=== PATIENT | female | born 1950 | race Caucasian/White ===

== ENCOUNTER 2016-06-16 17:41 | Emergency (ER) | payer MEDICARE, OTHER ==
--- NOTE | 2016-06-16 18:14 | ERPHSYRPT ---
- History of Present Illness Source: patient, family Exam Limitations: no limitations Patient Subjective Stated Complaint: has had some confusion past couple days, has trouble remembering things Triage Nursing Assessment: patient had episode similar to this last summer in august and her potassium, magnesium were all abnormal, shes having some confusion , trouble remembering things. Timing/Duration: today, hour(s) (2) Severity: mild Character of Deficits: other (Her states that she has had a few apisodes of altered memory over past few days. Then at 1600 today when he walked into room, she asked him who he was (did not recognize him). This lasted about 4 minutes, then she was clear again. No seizure or tonic/clonic activity.) Deficits: no difficulties Baseline/Normal Cognition: alert oriented x 3 Current Cognition: alert oriented x 3 Baseline Gait: walks w/o assistance Associated Symptoms: confusion, No slurred speech, No trouble walking Hx Tetanus, Diphtheria Vaccination/Date Given: Yes Hx Influenza Vaccination/Date Given: No Hx Pneumococcal Vaccination/Date Given: No Immunizations Up to Date: Yes <PAIGE BROWN - Last Filed: 06/16/16 18:47> <CINDY COLLINS - Last Filed: 06/16/16 20:14> - History of Present Illness Time Seen by Provider: 06/16/16 18:00 Physician History: No falls reported by her here with her. No change in meds, no missed meds, no extra meds. Pt. has no C/O pain or dysuria. (PAIGE BROWN) Allergies/Adverse Reactions: albuterol Allergy (Intermediate, Verified 11/23/15 11:56) Shortness of Breath Sulfa (Sulfonamide Antibiotics) Allergy (Intermediate, Verified 11/23/15 11:56) Home Medications: Glimepiride 1 mg PO DAILY 09/03/15 [History] Levothyroxine Sodium 25 Mcg [Synthroid 25 Mcg] 25 mcg PO DAILY 09/03/15 [ History] Lisinopril 20 mg PO DAILY 09/03/15 [History] Lovastatin 40 mg PO HS 09/03/15 [History] Metformin HCl 500 mg [Glucophage 500 MG] 500 mg PO BID 09/03/15 [History] Oxybutynin Chloride [Oxybutynin Chloride ER] 5 mg PO DAILY 09/03/15 [History] - Review of Systems Constitutional: No Symptoms Eyes: No Symptoms Ears, Nose, & Throat: No Symptoms Respiratory: No Symptoms Cardiac: No Symptoms Abdominal/Gastrointestinal: No Symptoms Skin: No Symptoms Neurological: Other (Altered mental status) Psychological: No Symptoms Endocrine: No Symptoms Hematologic/Lymphatic: No Symptoms Immunological/Allergic: No Symptoms <BROWNPAIGE SURENDRA - Last Filed: 06/16/16 18:47> - Past Medical History Pertinent Past Medical History: Yes Cardiac History: High Cholesterol, Hypertension Endocrine Medical History: Diabetes Type II Other Medical History: recent memory issues - Past Surgical History Past Surgical History: Yes Gastrointestinal: Cholecystectomy Female Surgical History: Hysterectomy - Social History Smoking Status: Never smoker Exposure to second hand smoke: No Drug Use: none Patient Lives Alone: No <STEPHANIEPAIGE SURENDRA - Last Filed: 06/16/16 18:47> - [place] Coma Scale Best Eye Response ([place]): (4) open spontaneously Best Verbal Response ([place]): (5) oriented Best Motor Response ([place]): (6) obeys commands [place] Total: 15 - Physical Exam General Appearance: no apparent distress Eye Exam: bilateral eye: PERRL Ears, Nose, Throat Exam: normal ENT inspection, pharynx normal Neck Exam: normal inspection, non-tender, supple, full range of motion Respiratory: normal breath sounds, lungs clear Cardiovascular: regular rate/rhythm, normal heart sounds, normal peripheral pulses Gastrointestinal: soft, normal bowel sounds Back Exam: normal inspection, normal range of motion Extremity Exam: normal inspection, normal range of motion, pelvis stable Mental Status: alert, 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: normal hearing, normal speech Coordination/Gait: normal gait Motor/Sensory: no motor deficit, no sensory deficit, no pronator drift Skin Exam: normal color, warm, dry SpO2 Interpretation: normal SpO2: 98 Oxygen Delivery: Room Air <PAIGE BROWN - Last Filed: 06/16/16 18:47> <CINDY COLLINS - Last Filed: 06/16/16 20:14> - Nursing Vital Signs Nursing Vital Signs: Initial Vital Signs Temperature 98.3 F Temperature Source Oral Pulse Rate 66 Respiratory Rate 20 Blood Pressure [] 142/72 Pain Intensity 0 - Course Nursing assessment & vital signs reviewed: Yes EKG Interpreted by Me: RATE (62), Sinus Rhythm, NORMAL AXIS, Other (Loss of Anterior R forces. No acute ischemia and no change since ECG of 6.16.16.) <PAIGE BROWN AGOSTO - Last Filed: 06/16/16 18:47> - Radiology Exams Chest X-ray Interpretation: Interpreted by me, No Pneumonia - CT Exams Head CT Interpretation: Discussed w/radiologist (STABLE NEGATIVE CT HEAD COMPARED TO 09/03/15.) <CINDY COLLINS - Last Filed: 06/16/16 20:14> Ordered Tests: Active Orders 24 hr Category Date Time Status Food Beverage Attendant STAT Care 06/16/16 18:22 Active Clean Catch Urine Specimen STAT Care 06/16/16 18:20 Active EKG-ER Only STAT Care 06/16/16 18:20 Active IV Insertion STAT Care 06/16/16 18:34 Active IV Insertion-2nd Peripheral STAT Care 06/16/16 18:22 Inactive Oxygen-ED Only NASAL CANNULA 2 lpm Care 06/16/16 18:22 Active CHEST 1 VIEW (PORTABLE) Stat Exams 06/16/16 18:20 Taken HEAD WITHOUT CONTRAST [CT] Stat Exams 06/16/16 18:09 Taken ACETAMINOPHEN Stat Lab 06/16/16 18:26 Completed CBC W DIFF Stat Lab 06/16/16 18:26 Completed CMP Stat Lab 06/16/16 18:26 Completed CULTURE,URINE Stat Lab 06/16/16 19:40 Received Ethyl Alcohol,Urine Stat Lab 06/16/16 19:37 Completed PROTIME WITH INR Stat Lab 06/16/16 18:26 Completed SALICYLATE Stat Lab 06/16/16 18:26 Completed TROPONIN Stat Lab 06/16/16 18:26 Completed UA W/ MICROSCOPIC Stat Lab 06/16/16 19:40 Completed UA W/RFX UR CULTURE Stat Lab 06/16/16 19:40 Completed Urine Triage Profile Stat Lab 06/16/16 19:40 Completed Lab/Rad Data: Laboratory Result Diagrams 06/16/16 18:26 06/16/16 18:26 Laboratory Results 06/16/16 06/16/16 06/16/16 Range/Units 19:40 19:40 19:37 WBC (4.0-10.5) K/mm3 RBC (4.1-5.4) M/mm3 Hgb (12.0-16.0) gm/dl Hct (35-47) % MCV (78-100) fl MCH (26-32) pg MCHC (32-36) g/dl RDW (11.5-14.0) % Plt Count (150-450) K/mm3 MPV (6-9.5) fl Gran % (36.0-66.0) % Lymphocytes % (24.0-44.0) % Monocytes % (0.0-12.0) % Eosinophils % (0.00-5.0) % Basophils % (0.0-0.4) % Basophils # (0-0.4) INR (0.8-3.0) Sodium (136-145) mEq/L Potassium (3.5-5.1) mEq/L Chloride (98-107) mEq/L Carbon Dioxide (21-32) mEq/L Anion Gap (5-15) MEQ/L BUN (9-20) mg/dL Creatinine (0.55-1.30) mg/dl Estimated GFR ML/MIN Glucose (70-110) MG/DL Calcium (8.5-10.1) mg/dL Total Bilirubin (0.2-1.0) mg/dL AST (15-37) U/L ALT (12-78) U/L Alkaline Phosphatase (46-116) U/L Troponin I (0.000-0.056) ng/ml Serum Total Protein (6.4-8.2) gm/dL Albumin (3.4-5.0) g/dL Ur Collection Type CLEAN CATCH Urine Color YELLOW (YELLOW) Urine Appearance CLEAR (CLEAR) Ur Specific [place] 1.010 (1.005-1.025) Urine Protein NEGATIVE (Negative) Urine Glucose (UA) NEGATIVE (NEGATIVE) mg/dL Urine Ketones NEGATIVE (NEGATIVE) Urine Nitrite POSITIVE (NEGATIVE) Urine Bilirubin NEGATIVE (NEGATIVE) Urine Urobilinogen 0.2 (0-1) mg/dL Urine WBC (Auto) MODERATE (NEGATIVE) Urine RBC (Auto) TRACE-INTACT (0-5) Vincenzo/ul Urine Microscopic RBC 2-5 (0-2) /HPF Urine Microscopic WBC 25-50 (0-5) /HPF Ur Epithelial Cells FEW (FEW) /HPF Urine Bacteria MANY (NEGATIVE) /HPF Salicylates (2.8-20.0) mg/dl Urine Opiates Level NEG. (NEGATIVE) Ur Methadone NEG. (NEGATIVE) Acetaminophen (10-30) ug/ml Urine Barbiturates NEG. (NEGATIVE) Ur Phencyclidine (PCP) NEG. (NEGATIVE) Urine Amphetamine NEG. (NEGATIVE) U Benzodiazepine Level NEG. (NEGATIVE) Urine Cocaine NEG. (NEGATIVE) Urine Marijuana (THC) NEG. (NEGATIVE) Urine pH 5.5 5.5 (3-8.5) Urine Ethyl Alcohol 2 (0.00-20) mg/dl Specimen Received 06/16/16193906/16/16 06/16/16 06/16/16 Range/Units 18:26 18:26 18:26 WBC 7.3 (4.0-10.5) K/mm3 RBC 3.62 L (4.1-5.4) M/mm3 Hgb 11.5 L (12.0-16.0) gm/dl Hct 34.1 L (35-47) % MCV 94.2 (78-100) fl MCH 31.7 (26-32) pg MCHC 33.7 (32-36) g/dl RDW 12.5 (11.5-14.0) % Plt Count 214 (150-450) K/mm3 MPV 9.8 H (6-9.5) fl Gran % 51.2 (36.0-66.0) % Lymphocytes % 37.0 (24.0-44.0) % Monocytes % 7.0 (0.0-12.0) % Eosinophils % 4.4 (0.00-5.0) % Basophils % 0.4 (0.0-0.4) % Basophils # 0.03 (0-0.4) INR 0.93 (0.8-3.0) Sodium 139 (136-145) mEq/L Potassium 3.7 (3.5-5.1) mEq/L Chloride 101 (98-107) mEq/L Carbon Dioxide 26.3 (21-32) mEq/L Anion Gap 15.2 H (5-15) MEQ/L BUN 16 (9-20) mg/dL Creatinine 1.09 (0.55-1.30) mg/dl Estimated GFR 53 ML/MIN Glucose 152 H (70-110) MG/DL Calcium 9.0 (8.5-10.1) mg/dL Total Bilirubin 0.5 (0.2-1.0) mg/dL AST 25 (15-37) U/L ALT 18 (12-78) U/L Alkaline Phosphatase 45 L (46-116) U/L Troponin I < 0.017 (0.000-0.056) ng/ml Serum Total Protein 7.1 (6.4-8.2) gm/dL Albumin 4.2 (3.4-5.0) g/dL Ur Collection Type Urine Color (YELLOW) Urine Appearance (CLEAR) Ur Specific [place] (1.005-1.025) Urine Protein (Negative) Urine Glucose (UA) (NEGATIVE) mg/dL Urine Ketones (NEGATIVE) Urine Nitrite (NEGATIVE) Urine Bilirubin (NEGATIVE) Urine Urobilinogen (0-1) mg/dL Urine WBC (Auto) (NEGATIVE) Urine RBC (Auto) (0-5) Vincenzo/ul Urine Microscopic RBC (0-2) /HPF Urine Microscopic WBC (0-5) /HPF Ur Epithelial Cells (FEW) /HPF Urine Bacteria (NEGATIVE) /HPF Salicylates < 2.8 L (2.8-20.0) mg/dl Urine Opiates Level (NEGATIVE) Ur Methadone (NEGATIVE) Acetaminophen < 2.0 L (10-30) ug/ml Urine Barbiturates (NEGATIVE) Ur Phencyclidine (PCP) (NEGATIVE) Urine Amphetamine (NEGATIVE) U Benzodiazepine Level (NEGATIVE) Urine Cocaine (NEGATIVE) Urine Marijuana (THC) (NEGATIVE) Urine pH (3-8.5) Urine Ethyl Alcohol (0.00-20) mg/dl Specimen Received - Progress Counseled pt/family regarding: lab results, diagnosis, rad results <PAIGE BROWN - Last Filed: 06/16/16 18:47> <CINDY COLLINS - Last Filed: 06/16/16 20:14> - Progress Progress Note: 06/16/16 20:[address] COLLINS 1956: PERRL, EOMI, TM'S NOT INJECTED, PHARYNX PINK, NECK SUPPLE, LUNGS CLEAR, NO CARDIAC RUB, ABDOMINAL B.S. NORMAL, FULL ROM AND SENSATION OF ALL EXTREMITIES, ALERT & COOPERATIVE, CN'S 2-12 NORMAL TESTED, NO BABINSKI PRESENT, NO TREMORS, ORIENTED X3. (CINDY COLLINS) <PAIGE BROWN - Last Filed: 06/16/16 18:47> - Departure Time of Disposition: 20:14 Departure Disposition: Home Critical Care Time: No <CINDY COLLINS - Last Filed: 06/16/16 20:14> - Departure Clinical Impression: CONFUSION Condition: Fair Referrals: SUMIT ANTONY MD [Primary Care Provider] - Instructions: Alzheimer's Disease Additional Instructions: FOLLOW UP WITH PRIVATE DOCTOR TOMORROW.
[2016-06-16 18:31] LABS: BASOPHIL % 0.4 % (0.0-0.4); Eosinophil % 4.4 % (0.00-5.0); Granulocytes % 51.2 % (36.0-66.0); Mean Cell Volume 94.2 fl (78-100); Mean Platelet Volume 9.8 fl (6-9.5); Platelet Count 214 K/mm3 (150-450); Red Blood Count 3.62 M/mm3 (4.1-5.4); Red Cell Distribution Width 12.5 % (11.5-14.0); White Blood Count 7.3 K/mm3 (4.0-10.5)
[2016-06-16 18:34] LABS: Mean Corpuscular Hemoglobin 31.7 pg (26-32)
[2016-06-16 18:37] LABS: INR 0.93 (0.8-3.0); PROTIME 10.4 SECONDS (9.95-12.35)
[2016-06-16 18:49] LABS: ALBUMIN 4.2 g/dL (3.4-5.0); ALKALINE PHOSPHATASE 45 U/L (46-116); ANION GAP 15.2 MEQ/L (5-15); BILIRUBIN,TOTAL 0.5 mg/dL (0.2-1.0); BLOOD UREA NITROGEN 16 mg/dL (9-20); CHLORIDE 101 mEq/L (98-107); Carbon Dioxide 26.3 mEq/L (21-32); Glucose 152 MG/DL (70-110); Potassium 3.7 mEq/L (3.5-5.1); SGOT/AST 25 U/L (15-37); SGPT/ALT 18 U/L (12-78); SODIUM 139 mEq/L (136-145); Total Protein 7.1 gm/dL (6.4-8.2)
[2016-06-16 18:50] LABS: ACETAMINOPHEN < 2.0 ug/ml (10-30); TROPONIN < 0.017 ng/ml (0.000-0.056)
[2016-06-16 19:55] LABS: COMPLETE URINE MICROSCOPIC? YES; Collection Type CLEAN CATCH; Ph 5.5 (5-6); WBC 25-50 /HPF (0-5)
[2016-06-16 19:56] LABS: ADD URINE CULTURE? YES (NO); Bacteria MANY /HPF (NEGATIVE); Epithelial Cells FEW /HPF (FEW)
[2016-06-16] MEDS ORDERED: ROCEPHIN 1 Gm-D5w 50 ml Bag** 50 ML IV ONE ×2 (20:18→20:19)
[2016-06-16 21:09] VITALS: BP 129/70; PULSE 78; O2SAT 100
--- NOTE | 2016-06-17 08:37 | XRAY ---
Indication: Altered mental status. Multiple contiguous axial images obtained through the head without contrast. Comparison: September 03, 2015. Stable age-appropriate global atrophy. No acute intracranial hemorrhage, abnormal extra-axial fluid collection, or mass effect. Fourth ventricle is midline without hydrocephalus. May-white matter differentiation preserved. Bony calvarium intact. Visualized paranasal sinuses and mastoid air cells are pneumatized and clear. Impression: Stable negative CT head without contrast exam. CT DI 70.21
--- NOTE | 2016-06-17 08:44 | XRAY ---
Indication: Altered mental status. Comparison: September 03, 2015. Portable chest again demonstrates normal heart and lungs. Bony thorax intact with stable mild osteopenia, degenerative changes, and scoliosis.
== END 2016-06-16 21:09 | disposition home or self-care (01) ==
LOC: ED 17:41
DX: R41.0 Disorientation, unspecified (principal); E11.9 Type 2 diabetes mellitus without complications; E78.00 Pure hypercholesterolemia, unspecified; I10 Essential (primary) hypertension; Z79.84 Long term (current) use of oral hypoglycemic drugs; Z79.899 Other long term (current) drug therapy
CPT/HCPCS: 93041; 96365; 99284; 36000; 93005; 81000 ×2; 85610; 36415; 80307 ×2; 80320; 83986; 85025; 80053; 84484; 87086; 71010; 70450; G0481; 87077; 87186; J0696

== ENCOUNTER 2016-06-24 14:00 | Emergency (ER) | payer MEDICARE, OTHER ==
[2016-06-24 14:15] VITALS: O2SAT 94
[2016-06-24] MEDS ORDERED: DECADRON 10MG INJ. IM ONE (14:33)
[2016-06-24] MEDS ORDERED: DECADRON 10MG INJ. ONE (14:39)
--- NOTE | 2016-06-24 14:40 | ERPHSYRPT ---
- History of Present Illness Time Seen by Provider: 06/24/16 14:18 Source: patient, family () Patient Subjective Stated Complaint: cough for 2 days, productive cough, white in color, no fever Triage Nursing Assessment: pt walked in ,resp easy,chest clear, no edema, alert Physician History: CC: cough Hx: [address] Antony with hx of bronchitis frequently. She has DM and watches sugars which run around 100. She had a cough since this AM. Feels congestion. Recently took macrobid for UTI. Timing/Duration: today Severity of Dyspnea-Max: mild Severity of Dyspnea-Current: mild Allergies/Adverse Reactions: albuterol Allergy (Intermediate, Verified 06/24/16 14:15) Shortness of Breath Sulfa (Sulfonamide Antibiotics) Allergy (Intermediate, Verified 06/24/16 14:15) Home Medications: Glimepiride 1 mg PO DAILY 09/03/15 [History] Levothyroxine Sodium 25 Mcg [Synthroid 25 Mcg] 25 mcg PO DAILY 09/03/15 [ History] Lisinopril 20 mg PO DAILY 09/03/15 [History] Lovastatin 40 mg PO HS 09/03/15 [History] Metformin HCl 500 mg [Glucophage 500 MG] 500 mg PO BID 09/03/15 [History] Oxybutynin Chloride [Oxybutynin Chloride ER] 5 mg PO DAILY 09/03/15 [History] Hx Tetanus, Diphtheria Vaccination/Date Given: Yes Hx Influenza Vaccination/Date Given: No Hx Pneumococcal Vaccination/Date Given: No - Review of Systems Constitutional: Malaise, No Fever, No Chills Eyes: No Symptoms Ears, Nose, & Throat: Nose Congestion Respiratory: Cough Abdominal/Gastrointestinal: No Abdominal Pain, No Nausea, No Vomiting Skin: No Rash Neurological: No Headache - Past Medical History Pertinent Past Medical History: Yes Cardiac History: High Cholesterol, Hypertension Endocrine Medical History: Diabetes Type II Other Medical History: recent memory issues - Past Surgical History Past Surgical History: Yes Gastrointestinal: Cholecystectomy Female Surgical History: Hysterectomy - Social History Smoking Status: Never smoker Exposure to second hand smoke: No Drug Use: none Patient Lives Alone: No - Female History Hx Last Menstrual Period: post - Nursing Vital Signs Nursing Vital Signs: Initial Vital Signs Temperature 98.7 F Temperature Source Oral Pulse Rate 67 Respiratory Rate 16 Blood Pressure [Right Arm] 155/85 Pain Intensity 0 - Physical Exam General Appearance: alert Eye Exam: PERRL/EOMI Neck Exam: normal inspection, non-tender, supple Respiratory Exam: rhonchi, wheezing, other (+ cough) Cardiovascular/Chest Exam: regular rate/rhythm Extremity Exam: no pedal edema Neurologic Exam: alert, oriented x 3, cooperative, sensation nml, No motor deficits Skin Exam: warm, dry, No rash SpO2 Interpretation: normal SpO2: 94 Oxygen Delivery: Room Air - Course Nursing assessment & vital signs reviewed: Yes Ordered Tests: Medication Summary Generic Name Dose Route Start Last Admin Trade Name Freq PRN Reason Stop Dose Admin Dexamethasone Sodium Phosphate 10 mg 06/24/16 14:33 Decadron 10mg Inj. IM 06/24/16 14:34 STAT ONE - Progress Progress Note: 06/24/16 14:37 She appears to have new asthmatic bronchitis. Offered alb MDI but she reports allergic. Will give IM dexamethasone and zithromax which she has taken in the past. She has follow up already established with Dr Antony. Counseled pt/family regarding: diagnosis, need for follow-up - Departure Time of Disposition: 14:38 Departure Disposition: Home Clinical Impression: Acute asthmatic bronchitis Condition: Stable Critical Care Time: No Referrals: SUMIT ANTONY MD [Primary Care Provider] - Instructions: Cough -- Adult, Bronchitis Additional Instructions: Rx zithromax. Follow up with Dr Antony. Watch your sugars. Prescriptions: Azithromycin [Zithromax] 0 tab PO UD #6 tablet
[2016-06-24 14:47] VITALS: BP 150/61; PULSE 76
== END 2016-06-24 14:47 | disposition home or self-care (01) ==
LOC: ED 14:00
DX: J45.998 Other asthma (principal); R05 Cough; E11.9 Type 2 diabetes mellitus without complications; Z79.899 Other long term (current) drug therapy
CPT/HCPCS: 96372; 99283; 99284; J1100

== ENCOUNTER 2016-06-25 17:41 | Emergency (ER) | payer MEDICARE, OTHER ==
[2016-06-25 17:58] VITALS: O2SAT 94
[2016-06-25 18:26] LABS: BASOPHIL % 0.1 % (0.0-0.4); Eosinophil % 3.5 % (0.00-5.0); Granulocytes % 83.4 % (36.0-66.0); Lymphocytes % 5.5 % (24.0-44.0); Mean Cell Volume 93.7 fl (78-100); Mean Platelet Volume 9.8 fl (6-9.5); Monocytes % 7.5 % (0.0-12.0); Platelet Count 223 K/mm3 (150-450); Red Blood Count 3.67 M/mm3 (4.1-5.4); Red Cell Distribution Width 12.7 % (11.5-14.0); White Blood Count 16.4 K/mm3 (4.0-10.5)
[2016-06-25 18:30] LABS: Mean Corpuscular Hemoglobin 31.8 pg (26-32)
[2016-06-25 18:38] LABS: ANION GAP 18.4 MEQ/L (5-15); Carbon Dioxide 21.1 mEq/L (21-32)
--- NOTE | 2016-06-25 18:58 | ERPHSYRPT ---
- History of Present Illness Time Seen by Provider: 06/25/16 18:02 Source: patient, family () Patient Subjective Stated Complaint: pt states she is currently being treated for an uti for the past week. pt states she was seen on 06/24/16 in ER for a cough. pt states she began running a fever today. denies any sob. non productive cough. Triage Nursing Assessment: pt pink, warm, dry. lungs sounds clear and equal bilaterally. Physician History: CC: fever Hx: 66 y/o patient with recent bladder infection treated with macrobid. She was here yesterday 3hours after starting cough and headache and malaise without fever. She was given zithromax. Allergic to albuterol. She was doing well today until about 2PM when she developed a fever to 102. She took APAP. Worried the uti or bronchitis might be worse so came to ER. No diff breathing. Mild headache , memory issues some of which predated this illness, and some mylagias. Timing/Duration: today Allergies/Adverse Reactions: albuterol Allergy (Intermediate, Verified 06/25/16 17:58) Shortness of Breath Sulfa (Sulfonamide Antibiotics) Allergy (Intermediate, Verified 06/25/16 17:58) Home Medications: Glimepiride 1 mg PO DAILY 09/03/15 [History] Levothyroxine Sodium 25 Mcg [Synthroid 25 Mcg] 25 mcg PO DAILY 09/03/15 [ History] Lisinopril 20 mg PO DAILY 09/03/15 [History] Lovastatin 40 mg PO HS 09/03/15 [History] Metformin HCl 500 mg [Glucophage 500 MG] 500 mg PO BID 09/03/15 [History] Oxybutynin Chloride [Oxybutynin Chloride ER] 5 mg PO DAILY 09/03/15 [History] Hx Tetanus, Diphtheria Vaccination/Date Given: Yes (unknown) Hx Influenza Vaccination/Date Given: No Hx Pneumococcal Vaccination/Date Given: No Immunizations Up to Date: Yes - Review of Systems Constitutional: Fever, Fatigue, Malaise, Weakness Eyes: No Symptoms Ears, Nose, & Throat: Nose Congestion Respiratory: Cough Abdominal/Gastrointestinal: Nausea, No Vomiting, No Diarrhea Genitourinary Symptoms: No Dysuria Musculoskeletal: No Back Pain, No Neck Pain Skin: No Rash Neurological: Headache All Other Systems: Reviewed and Negative - Past Medical History Pertinent Past Medical History: Yes Cardiac History: High Cholesterol, Hypertension Endocrine Medical History: Diabetes Type II Other Medical History: recent memory issues - Past Surgical History Past Surgical History: Yes Gastrointestinal: Cholecystectomy Female Surgical History: Hysterectomy - Social History Smoking Status: Never smoker Exposure to second hand smoke: No Drug Use: none Patient Lives Alone: No (here with ) - Nursing Vital Signs Nursing Vital Signs: Initial Vital Signs Temperature 100.2 F Temperature Source Oral Pulse Rate 76 Respiratory Rate 16 Blood Pressure [] 122/58 Pain Intensity 0 - Physical Exam General Appearance: alert Eye Exam: PERRL/EOMI Ears, Nose, Throat Exam: normal ENT inspection, moist mucous membranes Neck Exam: normal inspection, non-tender, supple, No meningismus Respiratory Exam: normal breath sounds, lungs clear, No respiratory distress Cardiovascular Exam: regular rate/rhythm, No murmur Gastrointestinal/Abdomen Exam: soft, No tenderness, No distention Back Exam: normal inspection Extremity Exam: normal inspection, normal range of motion Neurologic Exam: alert, oriented x 3, cooperative, sensation nml, No motor deficits Skin Exam: warm, dry, No rash SpO2 Interpretation: normal SpO2: 94 Oxygen Delivery: Room Air - Course Nursing assessment & vital signs reviewed: Yes - Radiology Exams cxr X-ray Interpretation: Reviewed by me (minimal if any infiltrates RLL- no change from prior) Ordered Tests: Active Orders 24 hr Category Date Time Status IV Insertion STAT Care 06/25/16 18:01 Active CHEST 2 VIEWS (PA AND LAT) Stat Exams 06/25/16 18:00 Taken BMP Stat Lab 06/25/16 18:18 Completed CBC W DIFF Stat Lab 06/25/16 18:18 Completed CULTURE,URINE Stat Lab 06/25/16 19:12 Received Lactic Acid Urgent Lab 06/25/16 18:20 Completed UA W/ MICROSCOPIC Stat Lab 06/25/16 18:18 Completed Lab/Rad Data: Laboratory Result Diagrams 06/25/16 18:18 06/25/16 18:18 Laboratory Results 06/25/16 06/25/16 06/25/16 Range/Units 18:20 18:18 18:18 WBC 16.4 H (4.0-10.5) K/mm3 RBC 3.67 L (4.1-5.4) M/mm3 Hgb 11.7 L (12.0-16.0) gm/dl Hct 34.4 L (35-47) % MCV 93.7 (78-100) fl MCH 31.8 (26-32) pg MCHC 34.0 (32-36) g/dl RDW 12.7 (11.5-14.0) % Plt Count 223 (150-450) K/mm3 MPV 9.8 H (6-9.5) fl Gran % 83.4 H (36.0-66.0) % Lymphocytes % 5.5 L (24.0-44.0) % Monocytes % 7.5 (0.0-12.0) % Eosinophils % 3.5 (0.00-5.0) % Basophils % 0.1 (0.0-0.4) % Basophils # 0.02 (0-0.4) Sodium 138 (136-145) mEq/L Potassium 4.0 (3.5-5.1) mEq/L Chloride 102 (98-107) mEq/L Carbon Dioxide 21.1 (21-32) mEq/L Anion Gap 18.4 H (5-15) MEQ/L BUN 21 H (9-20) mg/dL Creatinine 1.19 (0.55-1.30) mg/dl Estimated GFR 48 ML/MIN Glucose 96 (70-110) MG/DL Lactic Acid 1.7 (0.4-2.0) Calcium 9.9 (8.5-10.1) mg/dL Ur Collection Type Urine Color (YELLOW) Urine Appearance (CLEAR) Urine pH (5-6) Ur Specific [place] (1.005-1.025) Urine Protein (Negative) Urine Glucose (UA) (NEGATIVE) mg/dL Urine Ketones (NEGATIVE) Urine Nitrite (NEGATIVE) Urine Bilirubin (NEGATIVE) Urine Urobilinogen (0-1) mg/dL Urine WBC (Auto) (NEGATIVE) Urine RBC (Auto) (0-5) Vincenzo/ul Urine Microscopic RBC (0-2) /HPF Urine Microscopic WBC (0-5) /HPF Ur Epithelial Cells (FEW) /HPF Urine Bacteria (NEGATIVE) /HPF Hyaline Casts (0-2) /LPF Urine Mucus (NEGATIVE) /HPF Influenza Type A Ag (NEGATIVE) Influenza Type B Ag (NEGATIVE) RSV (PCR) (Negative) Specimen Received 06/25/16 06/25/16 Range/Units 18:18 18:06 WBC (4.0-10.5) K/mm3 RBC (4.1-5.4) M/mm3 Hgb (12.0-16.0) gm/dl Hct (35-47) % MCV (78-100) fl MCH (26-32) pg MCHC (32-36) g/dl RDW (11.5-14.0) % Plt Count (150-450) K/mm3 MPV (6-9.5) fl Gran % (36.0-66.0) % Lymphocytes % (24.0-44.0) % Monocytes % (0.0-12.0) % Eosinophils % (0.00-5.0) % Basophils % (0.0-0.4) % Basophils # (0-0.4) Sodium (136-145) mEq/L Potassium (3.5-5.1) mEq/L Chloride (98-107) mEq/L Carbon Dioxide (21-32) mEq/L Anion Gap (5-15) MEQ/L BUN (9-20) mg/dL Creatinine (0.55-1.30) mg/dl Estimated GFR ML/MIN Glucose (70-110) MG/DL Lactic Acid (0.4-2.0) Calcium (8.5-10.1) mg/dL Ur Collection Type CLEAN CATCH Urine Color YELLOW (YELLOW) Urine Appearance CLEAR (CLEAR) Urine pH 6.0 (5-6) Ur Specific [place] 1.015 (1.005-1.025) Urine Protein 30 (Negative) Urine Glucose (UA) NEGATIVE (NEGATIVE) mg/dL Urine Ketones TRACE (NEGATIVE) Urine Nitrite NEGATIVE (NEGATIVE) Urine Bilirubin NEGATIVE (NEGATIVE) Urine Urobilinogen 0.2 (0-1) mg/dL Urine WBC (Auto) NEGATIVE (NEGATIVE) Urine RBC (Auto) TRACE-LYSED (0-5) Vincenzo/ul Urine Microscopic RBC 2-5 (0-2) /HPF Urine Microscopic WBC 5-10 (0-5) /HPF Ur Epithelial Cells FEW (FEW) /HPF Urine Bacteria FEW (NEGATIVE) /HPF Hyaline Casts 0-2 (0-2) /LPF Urine Mucus SLIGHT (NEGATIVE) /HPF Influenza Type A Ag NEGATIVE (NEGATIVE) Influenza Type B Ag NEGATIVE (NEGATIVE) RSV (PCR) NEGATIVE (Negative) Specimen Received 06/25/16 1835 - Progress Progress Note: 06/25/16 18:59 She appears stable. 06/25/16 19:24 She is stable. No meningismus. Answers all questions. Taking po fluids. Likely viral syndrome however flu negative. Leukocytosis likely from yesterday's steroid injection. Will release with instructions. Counseled pt/family regarding: lab results, diagnosis, need for follow-up, rad results - Departure Time of Disposition: 19:26 Departure Disposition: Home Clinical Impression: Fever, URI (upper respiratory infection) Condition: Stable Critical Care Time: No Referrals: SUMIT ANTONY MD [Primary Care Provider] - Instructions: Fever (Symptom) -- Adult Additional Instructions: See Dr Antony Tuesday as scheduled. Tylenol as directed for fever. Drink plenty of fluids. Return for problems or concerns. Continue zithromax.
[2016-06-25 19:07] LABS: Bacteria FEW /HPF (NEGATIVE); COMPLETE URINE MICROSCOPIC? YES; Collection Type CLEAN CATCH; Epithelial Cells FEW /HPF (FEW); Hyaline Casts 0-2 /LPF (0-2); Mucus SLIGHT /HPF (NEGATIVE)
[2016-06-25 19:20] VITALS: BP 122/58; PULSE 76
--- NOTE | 2016-06-26 08:05 | XRAY ---
Indication: Fever and cough. Comparison: June 16, 2016. PA/lateral chest now demonstrates minimal bibasilar infiltrate versus atelectasis. Remaining heart and lungs normal. Bony thorax intact again with osteopenia, degenerative changes, and scoliosis.
== END 2016-06-25 19:37 | disposition home or self-care (01) ==
LOC: ED 17:41
DX: R50.9 Fever, unspecified (principal); J06.9 Acute upper respiratory infection, unspecified; R05 Cough; R53.83 Other fatigue; E11.9 Type 2 diabetes mellitus without complications; R51 Headache; Z79.899 Other long term (current) drug therapy; Z79.84 Long term (current) use of oral hypoglycemic drugs
CPT/HCPCS: 36000; 36415; 71020; 80048; 81000; 83605; 85025; 87086; 87631; 99283

== ENCOUNTER 2016-08-05 20:03 | Emergency (ER) | payer MEDICARE, OTHER ==
--- NOTE | 2016-08-05 21:05 | ERPHSYRPT ---
- History of Present Illness Time Seen by Provider: 08/05/16 21:00 Source: patient, family () Patient Subjective Stated Complaint: reports with c/o frequency and pain of urination with nausea and states that the last UTI she had, pt had difficulty with confusion - states that she "just isnt tracking right" with some repetitive speeck Triage Nursing Assessment: ambulatory to treatment area - steady gait - moves all extremities with equal strength. alert/oriented x3 - pleasant affect. skin pwd - no rash/injury. resps easy - non-labored Physician History: CC: dysuria Hx: 66 y/o patient of Dr Antony with dysuria since last night. Worse after supper tonite with repeated questions and possible confusion. No headache or injury. No fever or chills. Some nausea. No vomiting or diarrhea. Has prior hx of UTI. \\ Timing/Duration: yesterday Severity: mild Allergies/Adverse Reactions: albuterol Allergy (Intermediate, Verified 08/05/16 20:49) Shortness of Breath Sulfa (Sulfonamide Antibiotics) Allergy (Intermediate, Verified 08/05/16 20:49) Home Medications: Glimepiride 1 mg PO DAILY 09/03/15 [History] Levothyroxine Sodium 25 Mcg [Synthroid 25 Mcg] 25 mcg PO DAILY 09/03/15 [ History] Lisinopril 20 mg PO DAILY 09/03/15 [History] Lovastatin 40 mg PO HS 09/03/15 [History] Metformin HCl 500 mg [Glucophage 500 MG] 500 mg PO BID 09/03/15 [History] Oxybutynin Chloride [Oxybutynin Chloride ER] 5 mg PO DAILY 09/03/15 [History] Hx Tetanus, Diphtheria Vaccination/Date Given: Yes Hx Influenza Vaccination/Date Given: No Hx Pneumococcal Vaccination/Date Given: No Immunizations Up to Date: Yes - Review of Systems Constitutional: Malaise, No Fever, No Chills Eyes: No Symptoms Ears, Nose, & Throat: No Symptoms Respiratory: No Cough Cardiac: No Chest Pain Abdominal/Gastrointestinal: Nausea, No Abdominal Pain, No Vomiting, No Diarrhea Genitourinary Symptoms: Dysuria Skin: No Rash Neurological: No Focal Weakness, No Headache, No Parasthesia All Other Systems: Reviewed and Negative - Past Medical History Pertinent Past Medical History: Yes Cardiac History: High Cholesterol, Hypertension Endocrine Medical History: Diabetes Type II Other Medical History: recent memory issues - Past Surgical History Past Surgical History: Yes Gastrointestinal: Cholecystectomy Female Surgical History: Hysterectomy - Social History Smoking Status: Never smoker Exposure to second hand smoke: No Drug Use: none Patient Lives Alone: No - Female History Hx Last Menstrual Period: n/a - Nursing Vital Signs Nursing Vital Signs: Initial Vital Signs Temperature 99.7 F Temperature Source Rectal Pulse Rate 70 Respiratory Rate 20 Blood Pressure [Right Arm] 179/60 Pain Intensity 0 - Physical Exam General Appearance: alert Eye Exam: PERRL/EOMI Ears, Nose, Throat Exam: normal ENT inspection, moist mucous membranes Neck Exam: normal inspection, non-tender, supple Respiratory Exam: normal breath sounds, lungs clear Cardiovascular Exam: regular rate/rhythm, No murmur Gastrointestinal/Abdomen Exam: soft, No tenderness, No distention Extremity Exam: normal inspection, normal range of motion, No pedal edema Neurologic Exam: alert, cooperative, sensation nml, No motor deficits Skin Exam: warm, dry, No rash SpO2 Interpretation: normal SpO2: 97 Oxygen Delivery: Room Air - Course Nursing assessment & vital signs reviewed: Yes Ordered Tests: Active Orders 24 hr Category Date Time Status IV Insertion STAT Care 08/05/16 21:03 Active Rectal Temperature STAT Care 08/05/16 21:03 Active CBC W DIFF Stat Lab 08/05/16 21:10 Completed CMP Stat Lab 08/05/16 21:10 Completed CULTURE,URINE Stat Lab 08/05/16 21:00 Received Lactic Acid Stat Lab 08/05/16 21:03 Completed UA W/ MICROSCOPIC Stat Lab 08/05/16 21:00 Completed Lab/Rad Data: Laboratory Result Diagrams 08/05/16 21:10 08/05/16 21:10 Laboratory Results 08/05/16 08/05/16 08/05/16 Range/Units 21:10 21:10 21:03 WBC 7.2 (4.0-10.5) K/mm3 RBC 3.76 L (4.1-5.4) M/mm3 Hgb 12.0 (12.0-16.0) gm/dl Hct 35.1 (35-47) % MCV 93.4 (78-100) fl MCH 31.9 (26-32) pg MCHC 34.2 (32-36) g/dl RDW 12.6 (11.5-14.0) % Plt Count 218 (150-450) K/mm3 MPV 9.7 H (6-9.5) fl Gran % 77.9 H (36.0-66.0) % Lymphocytes % 18.0 L (24.0-44.0) % Monocytes % 4.0 (0.0-12.0) % Eosinophils % 0.0 (0.00-5.0) % Basophils % 0.1 (0.0-0.4) % Basophils # 0.01 (0-0.4) Sodium 134 L (136-145) mEq/L Potassium 3.6 (3.5-5.1) mEq/L Chloride 95 L (98-107) mEq/L Carbon Dioxide 27.5 (21-32) mEq/L Anion Gap 15.4 H (5-15) MEQ/L BUN 15 (9-20) mg/dL Creatinine 1.01 (0.55-1.30) mg/dl Estimated GFR 58 ML/MIN Glucose 131 H (70-110) MG/DL Lactic Acid 1.1 (0.4-2.0) Calcium 10.6 H (8.5-10.1) mg/dL Total Bilirubin 1.1 H (0.2-1.0) mg/dL AST 24 (15-37) U/L ALT 15 (12-78) U/L Alkaline Phosphatase 47 (46-116) U/L Serum Total Protein 8.2 (6.4-8.2) gm/dL Albumin 4.6 (3.4-5.0) g/dL Ur Collection Type Urine Color (YELLOW) Urine Appearance (CLEAR) Urine pH (5-6) Ur Specific [place] (1.005-1.025) Urine Protein (Negative) Urine Glucose (UA) (NEGATIVE) mg/dL Urine Ketones (NEGATIVE) Urine Nitrite (NEGATIVE) Urine Bilirubin (NEGATIVE) Urine Urobilinogen (0-1) mg/dL Urine WBC (Auto) (NEGATIVE) Urine RBC (Auto) (0-5) Vincenzo/ul Urine Microscopic RBC (0-2) /HPF Urine Microscopic WBC (0-5) /HPF Ur Epithelial Cells (FEW) /HPF Urine Bacteria (NEGATIVE) /HPF Urine Mucus (NEGATIVE) /HPF Specimen Received 08/05/16 Range/Units 21:00 WBC (4.0-10.5) K/mm3 RBC (4.1-5.4) M/mm3 Hgb (12.0-16.0) gm/dl Hct (35-47) % MCV (78-100) fl MCH (26-32) pg MCHC (32-36) g/dl RDW (11.5-14.0) % Plt Count (150-450) K/mm3 MPV (6-9.5) fl Gran % (36.0-66.0) % Lymphocytes % (24.0-44.0) % Monocytes % (0.0-12.0) % Eosinophils % (0.00-5.0) % Basophils % (0.0-0.4) % Basophils # (0-0.4) Sodium (136-145) mEq/L Potassium (3.5-5.1) mEq/L Chloride (98-107) mEq/L Carbon Dioxide (21-32) mEq/L Anion Gap (5-15) MEQ/L BUN (9-20) mg/dL Creatinine (0.55-1.30) mg/dl Estimated GFR ML/MIN Glucose (70-110) MG/DL Lactic Acid (0.4-2.0) Calcium (8.5-10.1) mg/dL Total Bilirubin (0.2-1.0) mg/dL AST (15-37) U/L ALT (12-78) U/L Alkaline Phosphatase (46-116) U/L Serum Total Protein (6.4-8.2) gm/dL Albumin (3.4-5.0) g/dL Ur Collection Type CLEAN CATCH Urine Color YELLOW (YELLOW) Urine Appearance CLEAR (CLEAR) Urine pH 7.0 (5-6) Ur Specific [place] 1.020 (1.005-1.025) Urine Protein 30 (Negative) Urine Glucose (UA) NEGATIVE (NEGATIVE) mg/dL Urine Ketones TRACE (NEGATIVE) Urine Nitrite NEGATIVE (NEGATIVE) Urine Bilirubin NEGATIVE (NEGATIVE) Urine Urobilinogen 0.2 (0-1) mg/dL Urine WBC (Auto) SMALL (NEGATIVE) Urine RBC (Auto) TRACE NON-HEM (0-5) Vincenzo/ul Urine Microscopic RBC 0-2 (0-2) /HPF Urine Microscopic WBC 10-15 (0-5) /HPF Ur Epithelial Cells FEW (FEW) /HPF Urine Bacteria FEW (NEGATIVE) /HPF Urine Mucus SLIGHT (NEGATIVE) /HPF Specimen Received 08/05/16:2100 - Progress Progress Note: 08/05/16 22:25 Pt stable. Will Rx UTI with pyridium and keflex. Counseled pt/family regarding: lab results, diagnosis, need for follow-up - Departure Time of Disposition: 22:25 Departure Disposition: Home Clinical Impression: UTI (urinary tract infection) Condition: Stable Critical Care Time: No Referrals: SUMIT ANTONY MD [Primary Care Provider] - Instructions: Urinary Tract Infection (UTI) Additional Instructions: URINARY TRACT INFECTION 1. You will need to drink plenty of fluids in order to keep your urinary system flushed. These fluids should mainly consist of water and juices. 2. Take medications as directed. You need to completely finish any antiobiotic prescription given. 3. Try to avoid coffee, tea, alcohol, and seasoned foods as they may cause bladder irritation. 4. If signs and symptoms persist after 3-4 days, you will need to follow up with your family physician. 5. Female Patients: A. Avoid intercourse for 3-4 days. B. Empty bladder before and after intercourse to reduce risk of re- infection. C. After emptying bladder, wipe from front to back to reduce the risk of re- infection. Rx keflex. Rx pyridium- will make urine turn yellow. Follow up with Dr Antony. Prescriptions: Cephalexin Mh 500 mg [Keflex 500 mg] 1 cap PO QID #28 capsule Phenazopyridine HCl 200 mg [Pyridium 200 mg] 1 tab PO TID #5 tablet
[2016-08-05 21:18] LABS: BASOPHIL % 0.1 % (0.0-0.4); Granulocytes % 77.9 % (36.0-66.0); Mean Cell Volume 93.4 fl (78-100); Mean Corpuscular Hemoglobin 31.9 pg (26-32); Mean Platelet Volume 9.7 fl (6-9.5); Platelet Count 218 K/mm3 (150-450); Red Blood Count 3.76 M/mm3 (4.1-5.4); Red Cell Distribution Width 12.6 % (11.5-14.0); White Blood Count 7.2 K/mm3 (4.0-10.5)
[2016-08-05 21:26] LABS: Bacteria FEW /HPF (NEGATIVE); COMPLETE URINE MICROSCOPIC? YES; Collection Type CLEAN CATCH; Epithelial Cells FEW /HPF (FEW); Mucus SLIGHT /HPF (NEGATIVE)
[2016-08-05 21:36] LABS: ALBUMIN 4.6 g/dL (3.4-5.0); ANION GAP 15.4 MEQ/L (5-15); BILIRUBIN,TOTAL 1.1 mg/dL (0.2-1.0); Carbon Dioxide 27.5 mEq/L (21-32); Potassium 3.6 mEq/L (3.5-5.1); Total Protein 8.2 gm/dL (6.4-8.2)
[2016-08-05] MEDS ORDERED: KEFLEX 500 MG PO ONE (22:24)
[2016-08-05] MEDS ORDERED: KEFLEX 500 MG ONE (22:31)
[2016-08-05] MEDS ORDERED: PYRIDIUM 200 MG ONE (22:31)
[2016-08-05 22:47] VITALS: BP 121/60; PULSE 73; O2SAT 99
[2016-08-06] MEDS ORDERED: PYRIDIUM 200 MG PO ONE (22:24)
== END 2016-08-05 22:47 | disposition home or self-care (01) ==
LOC: ED 20:03
DX: N39.0 Urinary tract infection, site not specified (principal); R30.0 Dysuria; R53.81 Other malaise; R11.0 Nausea
CPT/HCPCS: 36000; 36415; 80053; 81000; 83605; 85025; 87086; 99283; A9270-GY

== ENCOUNTER 2018-05-06 20:34 | Observation (INO) | payer MEDICARE, OTHER ==
--- NOTE | 2018-05-06 21:32 | ERPHSYRPT ---
- History of Present Illness Time Seen by Provider: 05/06/18 21:28 Historian: patient, family Patient Subjective Stated Complaint: Constipation Triage Nursing Assessment: Patient ambulated into ED and transferred self to bed. Patient Alert with intermittent confusion. at bedside giving history. Patient's complaint is constipation and uknown of when last BM was. Patient states her rectum was hurting and felt like she was sitting on a wooden block /10. Abdomen distendend and non-tender with absent bowel sounds. Physician History: pt is 68 year old female with hx of belching and abd distension and pain in rectum for several days, not vomiting hx prior hyst ; low grade temp per ; Timing/Duration: day(s) Quality: cramping, fullness, pressure Abdominal Pain Onset Location: other (rectal) Severity of Pain-Max: moderate Severity of Pain-Current: moderate Allergies/Adverse Reactions: albuterol Allergy (Intermediate, Verified 08/05/16 20:49) Shortness of Breath Sulfa (Sulfonamide Antibiotics) Allergy (Intermediate, Verified 08/05/16 20:49) Home Medications: Glimepiride 1 mg PO DAILY 09/03/15 [History] Levothyroxine Sodium 25 Mcg [Synthroid 25 Mcg] 25 mcg PO DAILY 09/03/15 [ History] Lisinopril 20 mg PO DAILY 09/03/15 [History] Lovastatin 40 mg PO HS 09/03/15 [History] Metformin HCl 500 mg [Glucophage 500 MG] 500 mg PO BID 09/03/15 [History] Oxybutynin Chloride [Oxybutynin Chloride ER] 5 mg PO DAILY 09/03/15 [History] Hx Tetanus, Diphtheria Vaccination/Date Given: Yes Hx Influenza Vaccination/Date Given: No Hx Pneumococcal Vaccination/Date Given: No Immunizations Up to Date: Yes - Review of Systems Constitutional: Fever, No Chills Eyes: No Symptoms Ears, Nose, & Throat: No Symptoms Respiratory: No Cough, No Dyspnea Cardiac: No Chest Pain, No Edema, No Syncope Abdominal/Gastrointestinal: Abdominal Pain, Nausea, No Vomiting, No Diarrhea Genitourinary Symptoms: No Dysuria Musculoskeletal: No Back Pain, No Neck Pain Skin: No Rash Neurological: No Dizziness, No Focal Weakness, No Sensory Changes Psychological: No Symptoms Endocrine: No Symptoms All Other Systems: Reviewed and Negative - Past Medical History Pertinent Past Medical History: Yes Cardiac History: High Cholesterol, Hypertension Endocrine Medical History: Diabetes Type II Musculoskeletal History: No Pertinent History GI Medical History: No Pertinent History History: No Pertinent History Psycho-Social History: No Pertinent History Female Reproductive Disorders: No Pertinent History Other Medical History: recent memory issues - Past Surgical History Past Surgical History: Yes Gastrointestinal: Cholecystectomy Female Surgical History: Hysterectomy - Social History Smoking Status: Never smoker Exposure to second hand smoke: No Drug Use: none Patient Lives Alone: No - Female History Hx Last Menstrual Period: menopausal Hx Now: No - Nursing Vital Signs Nursing Vital Signs: Initial Vital Signs Temperature 99.6 F 05/06/18 20:52 Pulse Rate 74 05/06/18 20:52 Respiratory Rate 18 05/06/18 20:52 Blood Pressure 152/74 05/06/18 20:52 O2 Sat by Pulse Oximetry 99 05/06/18 20:52 Pain Scale Pain Intensity 4 - Physical Exam General Appearance: no apparent distress, alert Eye Exam: PERRL/EOMI, eyes nml inspection Ears, Nose, Throat Exam: normal ENT inspection, pharynx normal, moist mucous membranes Neck Exam: normal inspection, non-tender, supple, full range of motion Respiratory Exam: normal breath sounds, lungs clear, No respiratory distress Cardiovascular Exam: regular rate/rhythm, normal heart sounds Gastrointestinal/Abdomen Exam: soft, distention, No tenderness, No mass Pelvic Exam: deferred Rectal Exam: tenderness, other (hard stool) Back Exam: normal inspection, normal range of motion, No CVA tenderness, No vertebral tenderness Extremity Exam: normal inspection, normal range of motion, pelvis stable Neurologic Exam: alert, oriented x 3, cooperative, normal mood/affect, nml cerebellar function, sensation nml, No motor deficits Skin Exam: normal color, warm, dry SpO2: 99 - Course Nursing assessment & vital signs reviewed: Yes EKG Interpreted by Me: Sinus Rhythm, NORMAL AXIS, NORMAL INTERVALS, Non- specific ST Changes - CT Exams Abdomen/Pelvis CT Interpretation: Tele-radiologist Report, No appendicitis, Other (stercoral colitis left perinephric stranding) Ordered Tests: Active Orders 24 hr Category Date Time Status Clean Catch Urine Specimen STAT Care 05/06/18 21:32 Active EKG-ER Only STAT Care 05/06/18 21:32 Active IV Insertion STAT Care 05/06/18 21:32 Active NPO (ED) STAT Care 05/06/18 21:32 Active ABDOMEN AND PELVIS W/0 CONTRAS [CT] Stat Exams 05/06/18 21:34 Taken AMYLASE Stat Lab 05/06/18 23:55 Completed CBC W DIFF Stat Lab 05/06/18 23:55 Completed CMP Stat Lab 05/06/18 23:55 Completed CULTURE,URINE Stat Lab 05/06/18 21:42 Received LIPASE Stat Lab 05/06/18 23:55 Completed Lactic Acid Stat Lab 05/06/18 21:32 Completed UA W/RFX UR CULTURE Stat Lab 05/06/18 21:42 Completed Medication Summary Generic Name Dose Route Start Last Admin Trade Name Freq PRN Reason Stop Dose Admin Sodium Chloride 1,000 mls @ 50 mls/hr 05/06/18 21:45 05/06/18 22:07 Sodium Chloride 0.9% 1000 Ml IV 06/05/18 21:44 50 mls/hr .Q20H CONCETTA Administration Discontinued Medications Generic Name Dose Route Start Last Admin Trade Name Freq PRN Reason Stop Dose Admin Ceftriaxone Sodium/Dextrose 1 g in 50 mls @ 100 mls/hr 05/06/18 22:10 00:44 Rocephin 1 Gm-D5w 50 Ml Bag IV 05/06/18 22:39 Infused STAT STA Infusion Ceftriaxone Sodium/Dextrose Confirm 05/06/18 22:24 Rocephin 1 Gm-D5w 50 Ml Bag Administered 05/06/18 22:25 Dose 1 g in 50 mls @ ud IV .K-MED ONE Lab/Rad Data: Laboratory Result Diagrams 05/06/18 23:55 05/06/18 23:55 Laboratory Results 05/07/18 05/06/18 05/06/18 Range/Units 00:06 23:55 23:55 WBC 13.7 H (4.0-10.5) K/mm3 RBC 2.87 L (4.1-5.4) M/mm3 Hgb 9.4 L (12.0-16.0) gm/dl Hct 28.2 L (35-47) % MCV 98.3 (78-100) fl MCH 32.7 H (26-32) pg MCHC 33.3 (32-36) g/dl RDW 12.5 (11.5-14.0) % Plt Count 210 (150-450) K/mm3 MPV 8.8 (6-9.5) fl Gran % 74.1 H (36.0-66.0) % Eos # (Auto) 0.08 (0-0.5) Absolute Lymphs (auto) 2.20 (1.0-4.6) Absolute Monos (auto) 1.25 (0.0-1.3) Lymphocytes % 16.0 L (24.0-44.0) % Monocytes % 9.1 (0.0-12.0) % Eosinophils % 0.6 (0.00-5.0) % Basophils % 0.2 (0.0-0.4) % Absolute Granulocytes 10.16 H (1.4-6.9) Basophils # 0.03 (0-0.4) Sodium 136 L (137-145) mmol/L Potassium 3.6 (3.5-5.1) mmol/L Chloride 104 (98-107) mmol/L Carbon Dioxide 24 (22-30) mmol/L Anion Gap 12.1 (5-15) MEQ/L BUN 24 H (7-17) mg/dL Creatinine 0.94 (0.52-1.04) mg/dL Estimated GFR > 60.0 ML/MIN Glucose 134 H (74-106) mg/dL Lactic Acid 0.9 (0.4-2.0) Calcium 9.5 (8.4-10.2) mg/dL Total Bilirubin 0.60 (0.2-1.3) mg/dL AST 22 (14-36) U/L ALT 13 (0-35) U/L Alkaline Phosphatase 50 (38-126) U/L Serum Total Protein 6.9 (6.3-8.2) g/dL Albumin 3.8 (3.5-5.0) g/dL Amylase 51 (30-110) U/L Lipase 209 (23-300) U/L Urine Color (YELLOW) Urine Appearance (CLEAR) Urine pH (5-6) Ur Specific [place] (1.005-1.025) Urine Protein (Negative) Urine Ketones (NEGATIVE) Urine Blood (0-5) Vincenzo/ul Urine Nitrite (NEGATIVE) Urine Bilirubin (NEGATIVE) Urine Urobilinogen (0-1) mg/dL Ur Leukocyte Esterase (NEGATIVE) Urine WBC (Auto) (0-5) /HPF Urine RBC (Auto) (0-2) /HPF U Epithel Cells (Auto) (FEW) /HPF Urine Bacteria (Auto) (NEGATIVE) /HPF Urine Mucus (Auto) (NEGATIVE) /HPF Urine Culture Reflexed (NO) Urine Glucose (NEGATIVE) mg/dL 05/06/18 Range/Units 21:42 WBC (4.0-10.5) K/mm3 RBC (4.1-5.4) M/mm3 Hgb (12.0-16.0) gm/dl Hct (35-47) % MCV (78-100) fl MCH (26-32) pg MCHC (32-36) g/dl RDW (11.5-14.0) % Plt Count (150-450) K/mm3 MPV (6-9.5) fl Gran % (36.0-66.0) % Eos # (Auto) (0-0.5) Absolute Lymphs (auto) (1.0-4.6) Absolute Monos (auto) (0.0-1.3) Lymphocytes % (24.0-44.0) % Monocytes % (0.0-12.0) % Eosinophils % (0.00-5.0) % Basophils % (0.0-0.4) % Absolute Granulocytes (1.4-6.9) Basophils # (0-0.4) Sodium (137-145) mmol/L Potassium (3.5-5.1) mmol/L Chloride (98-107) mmol/L Carbon Dioxide (22-30) mmol/L Anion Gap (5-15) MEQ/L BUN (7-17) mg/dL Creatinine (0.52-1.04) mg/dL Estimated GFR ML/MIN Glucose (74-106) mg/dL Lactic Acid (0.4-2.0) Calcium (8.4-10.2) mg/dL Total Bilirubin (0.2-1.3) mg/dL AST (14-36) U/L ALT (0-35) U/L Alkaline Phosphatase (38-126) U/L Serum Total Protein (6.3-8.2) g/dL Albumin (3.5-5.0) g/dL Amylase (30-110) U/L Lipase (23-300) U/L Urine Color YELLOW (YELLOW) Urine Appearance SLIGHTLY CLOUDY (CLEAR) Urine pH 7.0 (5-6) Ur Specific [place] 1.018 (1.005-1.025) Urine Protein 30 (Negative) Urine Ketones NEGATIVE (NEGATIVE) Urine Blood NEGATIVE (0-5) Vincenzo/ul Urine Nitrite NEGATIVE (NEGATIVE) Urine Bilirubin NEGATIVE (NEGATIVE) Urine Urobilinogen NEGATIVE (0-1) mg/dL Ur Leukocyte Esterase MODERATE (NEGATIVE) Urine WBC (Auto) >100 (0-5) /HPF Urine RBC (Auto) 6-10 (0-2) /HPF U Epithel Cells (Auto) RARE (FEW) /HPF Urine Bacteria (Auto) FEW (NEGATIVE) /HPF Urine Mucus (Auto) SLIGHT (NEGATIVE) /HPF Urine Culture Reflexed YES (NO) Urine Glucose 50 (NEGATIVE) mg/dL - Progress Progress: improved, re-examined Progress Note: 05/07/18 00:57 discussed with pt , Dr. Elias covering, and all agree pt needs to come in for AB and cleanout of bowels Discussed with : Jada Will see patient in: hospital (observation) Counseled pt/family regarding: lab results, diagnosis, need for follow-up, rad results - Departure Time of Disposition: 00:58 Departure Disposition: Home Clinical Impression: UTI (urinary tract infection), stercoral colitis, Type 2 diabetes mellitus, early pyelonephritis Condition: Good Critical Care Time: No Referrals: SUMIT ANTONY MD [Primary Care Provider] -
[2018-05-06] MEDS ORDERED: Sodium Chloride 0.9% 1000 ML 1,000 ML IV SCH (21:45)
[2018-05-06 21:57] LABS: Appearance SLIGHTLY CLOUDY (CLEAR); Bacteria FEW /HPF (NEGATIVE); Bilirubin NEGATIVE (NEGATIVE); Blood NEGATIVE Ery/ul (0-5); Epithelial Cells RARE /HPF (FEW); Glucose 50 mg/dL (NEGATIVE); Ketones NEGATIVE (NEGATIVE); Leukocyte Esterase MODERATE (NEGATIVE); Mucus SLIGHT /HPF (NEGATIVE); Nitrite NEGATIVE (NEGATIVE); Protein,Urine Dip 30 (Negative); Specific Gravity 1.018 (1.005-1.025); Urobilinogen NEGATIVE mg/dL (0-1); WBC >100 /HPF (0-5)
[2018-05-06] MEDS ORDERED: Sodium Chloride 0.9% 1000 ML 1,000 ML ONE (22:05)
[2018-05-06] MEDS ORDERED: ROCEPHIN 1 Gm-D5w 50 ml Bag** 1 G/50 ML IVPB IV STA (22:10)
[2018-05-06] MEDS ORDERED: ROCEPHIN 1 Gm-D5w 50 ml Bag** 1 G/50 ML IVPB IV ONE (22:24)
[2018-05-07 00:12] LABS: BASOPHIL % 0.2 % (0.0-0.4); Basophil (Absolute #) 0.03 (0-0.4); Eosinophil % 0.6 % (0.00-5.0); Eosinophil (Absolute #) 0.08 (0-0.5); Granulocyte Absolute (ANC) 10.16 (1.4-6.9); Granulocytes % 74.1 % (36.0-66.0); Hematocrit 28.2 % (35-47); Hemoglobin 9.4 gm/dl (12.0-16.0); Mean Cell Volume 98.3 fl (78-100); Mean Corpuscular Hgb Concent. 33.3 g/dl (32-36); Mean Platelet Volume 8.8 fl (6-9.5); Monocyte (Absolute #) 1.25 (0.0-1.3); Monocytes % 9.1 % (0.0-12.0); Platelet Count 210 K/mm3 (150-450); Red Blood Count 2.87 M/mm3 (4.1-5.4); Red Cell Distribution Width 12.5 % (11.5-14.0); White Blood Count 13.7 K/mm3 (4.0-10.5)
[2018-05-07 00:22] LABS: Mean Corpuscular Hemoglobin 32.7 pg (26-32)
[2018-05-07 00:28] LABS: ALBUMIN 3.8 g/dL (3.5-5.0); ALKALINE PHOSPHATASE 50 U/L (38-126); AMYLASE 51 U/L (30-110); ANION GAP 12.1 MEQ/L (5-15); BLOOD UREA NITROGEN 24 mg/dL (7-17); CHLORIDE 104 mmol/L (98-107); Calcium 9.5 mg/dL (8.4-10.2); Carbon Dioxide 24 mmol/L (22-30); Creatinine 1 0.94 mg/dL (0.52-1.04); Glucose 134 mg/dL (74-106); LIPASE 209 U/L (23-300); Potassium 3.6 mmol/L (3.5-5.1); SGOT/AST 22 U/L (14-36); SGPT/ALT 13 U/L (0-35); SODIUM 136 mmol/L (137-145); Total Protein 6.9 g/dL (6.3-8.2)
[2018-05-07] MEDS ORDERED: Zofran 4 MG/2 ML VIAL IV PRN (02:29)
[2018-05-07] MEDS ORDERED: MORPHINE SULFATE 4 MG INJ IV PRN (02:29)
[2018-05-07] MEDS ORDERED: Dulcolax 10 MG SUPP PR ONE ×2 (02:29→16:00)
[2018-05-07] MEDS: Sodium Chloride 0.9% 1000 ML 1,000 ML IV SCH ×3 (02:54→23:03)
[2018-05-07] MEDS: FLAGYL 500 MG IVPB 500 MG/100 ML BAG IV SCH ×4 (06:11→23:03)
[2018-05-07 06:39] LABS: Hematocrit 32.2 % (35-47); Hemoglobin 10.6 gm/dl (12.0-16.0); Mean Cell Volume 99.7 fl (78-100); Mean Corpuscular Hemoglobin 32.8 pg (26-32); Mean Corpuscular Hgb Concent. 32.9 g/dl (32-36); Mean Platelet Volume 10.3 fl (6-9.5); Platelet Count 143 K/mm3 (150-450); Red Blood Count 3.23 M/mm3 (4.1-5.4); Red Cell Distribution Width 12.8 % (11.5-14.0); White Blood Count 13.4 K/mm3 (4.0-10.5)
[2018-05-07 06:48] LABS: ALBUMIN 4.2 g/dL (3.5-5.0); ALKALINE PHOSPHATASE 59 U/L (38-126); ANION GAP 13.2 MEQ/L (5-15); BLOOD UREA NITROGEN 21 mg/dL (7-17); CHLORIDE 105 mmol/L (98-107); Calcium 9.7 mg/dL (8.4-10.2); Carbon Dioxide 25 mmol/L (22-30); Creatinine 1 0.92 mg/dL (0.52-1.04); Glucose 131 mg/dL (74-106); Potassium 3.7 mmol/L (3.5-5.1); SGOT/AST 22 U/L (14-36); SGPT/ALT 14 U/L (0-35); SODIUM 139 mmol/L (137-145); Total Protein 7.5 g/dL (6.3-8.2)
[2018-05-07 07:39] LABS: Eosinophil 2 % (0.00-3.0); Lymphocytes 12 % (24-44); Monocyte 8 % (0.0-12.0); Neutrophils 78 % (36.0-66.0); Total Cells Counted 100
[2018-05-07 07:41] LABS: Platelet Estimate NORMAL (NORMAL)
--- NOTE | 2018-05-07 08:22 | XRAY ---
Indication: Abdomen/rectal pain. Distention. Fever. Multiple contiguous axial images obtained through the abdomen and pelvis without contrast as ordered. Comparison: September 07, 2016. Lung bases remains clear again with right middle lobe calcified granuloma. Heart is not enlarged. Noncontrasted stomach and bowel loops appear nonobstructed. Normal appendix. Moderate diffuse scattered colonic fecal debris throughout including rectum, more than before. Mild wall thickening at the rectosigmoid junction either incomplete distention versus focal colitis versus mass. No free fluid/air. Inferior left kidney now demonstrates 1.2 cm exophytic mass with minimal perinephric stranding, possible cyst versus solid mass. Stable hepatic calcified granulomas, cholecystectomy, hysterectomy, and nonobstructing right renal microcalculus. Remaining liver, pancreas, spleen, adrenal glands, kidneys, ureters, and bladder appear unremarkable for noncontrast exam. Again mild aortoiliac calcifications without AAA. Osseous structures intact again with lower lumbar degenerative changes. No ventral or inguinal hernias. Impression: 1. Worsening moderate diffuse fecal stasis. 2. Mild rectosigmoid junction wall thickening either incomplete distention versus focal colitis versus mass. Sigmoidoscopy may yield further information. 3. New inferior left renal exophytic mass with stranding, cyst versus solid mass. CT or MRI with contrast exam medial further information. 4. Stable nonobstructing right renal microcalculus and evidence for old granulomatous disease. Comment: Preliminary interpretation was made by [facility]. No critical discrepancy. CTDI 9.53
[2018-05-07] MEDS: Pepcid 20 MG VIAL IV SCH ×2 (09:42→22:19)
[2018-05-07] MEDS: LEVOFLOXACIN 750MG/150ML D5W 750 MG/150 ML BAG IV SCH (09:42)
--- NOTE | 2018-05-07 11:46 | PCM.HP ---
History of Present Illness - Chief Complaint Chief Complaint: UTI, Stercoral Colitis; DM II History of Present Illness: is a 68 year old female pt of Dr. Chaney with dementia, DM II, and recent nephrotic syndrome (with renal biopsy on L) who was brought to ER by her when she complained of rectal burning. She was found to be obstipated, with mild rectosigmoid wall thickening on CT abd/pelvis, so was admitted for IV antibiotics and stool softeners/laxatives. She has been given Milk of Mag and a rectal suppository, and had multiple smears of stool, 2 hard round balls, and liquid stool. Her is at bedside, giving the history, as her short term memory is impaired. She apparently had decreased responsiveness 10d ago and seemed paralysed on the R side, so she was [facility]A was ruled out. Her BS was in the mid 30s at that time. She did have renal failure and her renal biopsy. wonders if the decreased activity level at that time lead to decreased bowel movements. She had had UTIs in the past and had some concerns, although she was not c/o dysuria, and 3d ago he took her for urine sample. She saw Dr. Chaney 2d ago and he said there was no UTI. - Review of Systems Constitutional: No Fever Abdominal/Gastrointestinal: Constipation, No Abdominal Pain All Other Systems: Unable due to dementia Medications & Allergies Home Medications: Home Medication List Glimepiride 0.5 mg PO DAILY 09/03/15 [History Confirmed 05/07/18] Levothyroxine Sodium 25 Mcg [Synthroid 25 Mcg] 25 mcg PO DAILY 09/03/15 [ History Confirmed 05/07/18] Lovastatin 20 mg PO HS 09/03/15 [History Confirmed 05/07/18] Metformin HCl 500 mg [Glucophage 500 MG] 500 mg PO BID 09/03/15 [History Confirmed 05/07/18] Magnesium Oxide 400 mg [Mag-Ox 400] 400 mg PO DAILY #30 tablet 09/05/15 [ Rx Confirmed 05/07/18] Amlodipine Besylate 5 mg PO DAILY 05/07/18 [History Confirmed 05/07/18] Memantine HCl 10 mg PO BID 05/07/18 [History Confirmed 05/07/18] Allergies/Adverse Reactions: Allergies Allergy/AdvReac Type Severity Reaction Status Date / Time albuterol Allergy Intermediate Shortness Verified 05/07/18 03:10 of Breath Sulfa (Sulfonamide Allergy Intermediate Verified 05/07/18 03:10 Antibiotics) - Past Medical History Past Medical History: Yes Neurological History: No Pertinent History ENT History: No Pertinent History Cardiac History: High Cholesterol, Hypertension Respiratory History: No Pertinent History Endocrine Medical History: Diabetes Type II, Hypothyroidism Musculoskelatal History: No Pertinent History GI Medical History: No Pertinent History History: Other Pyscho-Social History: No Pertinent History Reproductive Disorders: No Pertinent History Comment: recent memory issues; recent admission to [facility] for renal failure - Female History Hx Last Menstrual Period: menopausal Are you now?: No - Past Surgical History Past Surgical History: Yes Neuro Surgical History: No Pertinent History Cardiac History: No Pertinent History Respiratory Surgery: No Pertinent History GI Surgical History: Cholecystectomy Genitourinary Surgical Hx: No Pertinent History Musculskeletal Surgical Hx: No Pertinent History Female Surgical History: Hysterectomy - Social History Smoking Status: Never smoker Exposure to second hand smoke: No Alcohol: None Drug Use: none - Physical Exam Vital Signs: Vital Signs - 24 hr Temp Pulse Resp BP Pulse Ox 05/07/18 08:00 96 05/07/18 07:43 98.4 F 67 16 125/65 96 05/07/18 03:16 98.7 F 67 16 101/71 97 05/07/18 01:00 99 05/06/18 23:40 75 100 05/06/18 22:15 73 18 100 05/06/18 21:25 80 16 148/78 98 05/06/18 20:52 99.6 F 74 18 152/74 99 General Appearance: no apparent distress, alert Neurologic Exam: cooperative, other (pleasant - was oriented x 3 for RN. Decreased short term memory - can't remember sx.) Ears, Nose, Throat Exam: moist mucous membranes Neck Exam: normal inspection, non-tender, No lymphadenopathy Respiratory Exam: normal breath sounds, lungs clear, No crackles/rales, No rhonchi, No wheezing Cardiovascular Exam: regular rate/rhythm, normal heart sounds, No murmur Gastrointestinal/Abdomen Exam: soft, normal bowel sounds, No tenderness, No distention, No mass, No guarding, No rebound Back Exam: normal inspection, No rash Extremity Exam: normal inspection, No pedal edema, No swelling Results - Labs Lab/Micro Results: Accuchecks Date 05/07/18 Time 05:30 Lab Results-Last 24 Hours 05/06/18 05/06/18 05/06/18 Range/Units 21:42 23:55 23:55 WBC 13.7 H (4.0-10.5) K/mm3 RBC 2.87 L (4.1-5.4) M/mm3 Hgb 9.4 L (12.0-16.0) gm/dl Hct 28.2 L (35-47) % MCV 98.3 (78-100) fl MCH 32.7 H (26-32) pg MCHC 33.3 (32-36) g/dl RDW 12.5 (11.5-14.0) % Plt Count 210 (150-450) K/mm3 MPV 8.8 (6-9.5) fl Gran % 74.1 H (36.0-66.0) % Eos # (Auto) 0.08 (0-0.5) Absolute Lymphs (auto) 2.20 (1.0-4.6) Absolute Monos (auto) 1.25 (0.0-1.3) Lymphocytes % 16.0 L (24.0-44.0) % Monocytes % 9.1 (0.0-12.0) % Eosinophils % 0.6 (0.00-5.0) % Basophils % 0.2 (0.0-0.4) % Absolute Granulocytes 10.16 H (1.4-6.9) Segmented Neutrophils (36.0-66.0) % Lymphocytes (Manual) (24-44) % Monocytes (Manual) (0.0-12.0) % Eosinophils (Manual) (0.00-3.0) % Basophils # 0.03 (0-0.4) Platelet Estimate (NORMAL) RBC Morphology Sodium 136 L (137-145) mmol/L Potassium 3.6 (3.5-5.1) mmol/L Chloride 104 (98-107) mmol/L Carbon Dioxide 24 (22-30) mmol/L Anion Gap 12.1 (5-15) MEQ/L BUN 24 H (7-17) mg/dL Creatinine 0.94 (0.52-1.04) mg/dL Estimated GFR > 60.0 ML/MIN Glucose 134 H (74-106) mg/dL Hemoglobin A1c (4.5-6.0) % Lactic Acid (0.4-2.0) Calcium 9.5 (8.4-10.2) mg/dL Total Bilirubin 0.60 (0.2-1.3) mg/dL AST 22 (14-36) U/L ALT 13 (0-35) U/L Alkaline Phosphatase 50 (38-126) U/L Troponin I (0.000-0.034) ng/mL Serum Total Protein 6.9 (6.3-8.2) g/dL Albumin 3.8 (3.5-5.0) g/dL Amylase 51 (30-110) U/L Lipase 209 (23-300) U/L Urine Color YELLOW (YELLOW) Urine Appearance SLIGHTLY CLOUDY (CLEAR) Urine pH 7.0 (5-6) Ur Specific Vina 1.018 (1.005-1.025) Urine Protein 30 (Negative) Urine Ketones NEGATIVE (NEGATIVE) Urine Blood NEGATIVE (0-5) Vincenzo/ul Urine Nitrite NEGATIVE (NEGATIVE) Urine Bilirubin NEGATIVE (NEGATIVE) Urine Urobilinogen NEGATIVE (0-1) mg/dL Ur Leukocyte Esterase MODERATE (NEGATIVE) Urine WBC (Auto) >100 (0-5) /HPF Urine RBC (Auto) 6-10 (0-2) /HPF U Epithel Cells (Auto) RARE (FEW) /HPF Urine Bacteria (Auto) FEW (NEGATIVE) /HPF Urine Mucus (Auto) SLIGHT (NEGATIVE) /HPF Urine Culture Reflexed YES (NO) Urine Glucose 50 (NEGATIVE) mg/dL 05/07/18 05/07/18 05/07/18 Range/Units 00:06 01:30 06:20 WBC 13.4 H (4.0-10.5) K/mm3 RBC 3.23 L (4.1-5.4) M/mm3 Hgb 10.6 L (12.0-16.0) gm/dl Hct 32.2 L (35-47) % MCV 99.7 (78-100) fl MCH 32.8 H (26-32) pg MCHC 32.9 (32-36) g/dl RDW 12.8 (11.5-14.0) % Plt Count 143 L (150-450) K/mm3 MPV 10.3 H (6-9.5) fl Gran % (36.0-66.0) % Eos # (Auto) (0-0.5) Absolute Lymphs (auto) (1.0-4.6) Absolute Monos (auto) (0.0-1.3) Lymphocytes % (24.0-44.0) % Monocytes % (0.0-12.0) % Eosinophils % (0.00-5.0) % Basophils % (0.0-0.4) % Absolute Granulocytes (1.4-6.9) Segmented Neutrophils 78 H (36.0-66.0) % Lymphocytes (Manual) 12 L (24-44) % Monocytes (Manual) 8 (0.0-12.0) % Eosinophils (Manual) 2 (0.00-3.0) % Basophils # (0-0.4) Platelet Estimate NORMAL (NORMAL) RBC Morphology NORMAL Sodium (137-145) mmol/L Potassium (3.5-5.1) mmol/L Chloride (98-107) mmol/L Carbon Dioxide (22-30) mmol/L Anion Gap (5-15) MEQ/L BUN (7-17) mg/dL Creatinine (0.52-1.04) mg/dL Estimated GFR ML/MIN Glucose (74-106) mg/dL Hemoglobin A1c (4.5-6.0) % Lactic Acid 0.9 (0.4-2.0) Calcium (8.4-10.2) mg/dL Total Bilirubin (0.2-1.3) mg/dL AST (14-36) U/L ALT (0-35) U/L Alkaline Phosphatase (38-126) U/L Troponin I < 0.012 (0.000-0.034) ng/mL Serum Total Protein (6.3-8.2) g/dL Albumin (3.5-5.0) g/dL Amylase (30-110) U/L Lipase (23-300) U/L Urine Color (YELLOW) Urine Appearance (CLEAR) Urine pH (5-6) Ur Specific Vina (1.005-1.025) Urine Protein (Negative) Urine Ketones (NEGATIVE) Urine Blood (0-5) Vincenzo/ul Urine Nitrite (NEGATIVE) Urine Bilirubin (NEGATIVE) Urine Urobilinogen (0-1) mg/dL Ur Leukocyte Esterase (NEGATIVE) Urine WBC (Auto) (0-5) /HPF Urine RBC (Auto) (0-2) /HPF U Epithel Cells (Auto) (FEW) /HPF Urine Bacteria (Auto) (NEGATIVE) /HPF Urine Mucus (Auto) (NEGATIVE) /HPF Urine Culture Reflexed (NO) Urine Glucose (NEGATIVE) mg/dL 05/07/18 05/07/18 05/07/18 Range/Units 06:20 06:20 06:20 WBC (4.0-10.5) K/mm3 RBC (4.1-5.4) M/mm3 Hgb (12.0-16.0) gm/dl Hct (35-47) % MCV (78-100) fl MCH (26-32) pg MCHC (32-36) g/dl RDW (11.5-14.0) % Plt Count (150-450) K/mm3 MPV (6-9.5) fl Gran % (36.0-66.0) % Eos # (Auto) (0-0.5) Absolute Lymphs (auto) (1.0-4.6) Absolute Monos (auto) (0.0-1.3) Lymphocytes % (24.0-44.0) % Monocytes % (0.0-12.0) % Eosinophils % (0.00-5.0) % Basophils % (0.0-0.4) % Absolute Granulocytes (1.4-6.9) Segmented Neutrophils (36.0-66.0) % Lymphocytes (Manual) (24-44) % Monocytes (Manual) (0.0-12.0) % Eosinophils (Manual) (0.00-3.0) % Basophils # (0-0.4) Platelet Estimate (NORMAL) RBC Morphology Sodium 139 (137-145) mmol/L Potassium 3.7 (3.5-5.1) mmol/L Chloride 105 (98-107) mmol/L Carbon Dioxide 25 (22-30) mmol/L Anion Gap 13.2 (5-15) MEQ/L BUN 21 H (7-17) mg/dL Creatinine 0.92 (0.52-1.04) mg/dL Estimated GFR > 60.0 ML/MIN Glucose 131 H (74-106) mg/dL Hemoglobin A1c 5.93 (4.5-6.0) % Lactic Acid (0.4-2.0) Calcium 9.7 (8.4-10.2) mg/dL Total Bilirubin 0.90 (0.2-1.3) mg/dL AST 22 (14-36) U/L ALT 14 (0-35) U/L Alkaline Phosphatase 59 (38-126) U/L Troponin I < 0.012 (0.000-0.034) ng/mL Serum Total Protein 7.5 (6.3-8.2) g/dL Albumin 4.2 (3.5-5.0) g/dL Amylase (30-110) U/L Lipase (23-300) U/L Urine Color (YELLOW) Urine Appearance (CLEAR) Urine pH (5-6) Ur Specific Vina (1.005-1.025) Urine Protein (Negative) Urine Ketones (NEGATIVE) Urine Blood (0-5) Vincenzo/ul Urine Nitrite (NEGATIVE) Urine Bilirubin (NEGATIVE) Urine Urobilinogen (0-1) mg/dL Ur Leukocyte Esterase (NEGATIVE) Urine WBC (Auto) (0-5) /HPF Urine RBC (Auto) (0-2) /HPF U Epithel Cells (Auto) (FEW) /HPF Urine Bacteria (Auto) (NEGATIVE) /HPF Urine Mucus (Auto) (NEGATIVE) /HPF Urine Culture Reflexed (NO) Urine Glucose (NEGATIVE) mg/dL 05/07/18 05/07/18 Range/Units 06:25 08:45 WBC (4.0-10.5) K/mm3 RBC (4.1-5.4) M/mm3 Hgb (12.0-16.0) gm/dl Hct (35-47) % MCV (78-100) fl MCH (26-32) pg MCHC (32-36) g/dl RDW (11.5-14.0) % Plt Count (150-450) K/mm3 MPV (6-9.5) fl Gran % (36.0-66.0) % Eos # (Auto) (0-0.5) Absolute Lymphs (auto) (1.0-4.6) Absolute Monos (auto) (0.0-1.3) Lymphocytes % (24.0-44.0) % Monocytes % (0.0-12.0) % Eosinophils % (0.00-5.0) % Basophils % (0.0-0.4) % Absolute Granulocytes (1.4-6.9) Segmented Neutrophils (36.0-66.0) % Lymphocytes (Manual) (24-44) % Monocytes (Manual) (0.0-12.0) % Eosinophils (Manual) (0.00-3.0) % Basophils # (0-0.4) Platelet Estimate (NORMAL) RBC Morphology Sodium (137-145) mmol/L Potassium (3.5-5.1) mmol/L Chloride (98-107) mmol/L Carbon Dioxide (22-30) mmol/L Anion Gap (5-15) MEQ/L BUN (7-17) mg/dL Creatinine (0.52-1.04) mg/dL Estimated GFR ML/MIN Glucose (74-106) mg/dL Hemoglobin A1c (4.5-6.0) % Lactic Acid 1.3 (0.4-2.0) Calcium (8.4-10.2) mg/dL Total Bilirubin (0.2-1.3) mg/dL AST (14-36) U/L ALT (0-35) U/L Alkaline Phosphatase (38-126) U/L Troponin I < 0.012 (0.000-0.034) ng/mL Serum Total Protein (6.3-8.2) g/dL Albumin (3.5-5.0) g/dL Amylase (30-110) U/L Lipase (23-300) U/L Urine Color (YELLOW) Urine Appearance (CLEAR) Urine pH (5-6) Ur Specific Vina (1.005-1.025) Urine Protein (Negative) Urine Ketones (NEGATIVE) Urine Blood (0-5) Vincenzo/ul Urine Nitrite (NEGATIVE) Urine Bilirubin (NEGATIVE) Urine Urobilinogen (0-1) mg/dL Ur Leukocyte Esterase (NEGATIVE) Urine WBC (Auto) (0-5) /HPF Urine RBC (Auto) (0-2) /HPF U Epithel Cells (Auto) (FEW) /HPF Urine Bacteria (Auto) (NEGATIVE) /HPF Urine Mucus (Auto) (NEGATIVE) /HPF Urine Culture Reflexed (NO) Urine Glucose (NEGATIVE) mg/dL Accuchecks Date 05/07/18 Time 05:30 - Radiology Impressions Radiology Exams & Impressions: Radiology Procedures Category Date Time Status ABDOMEN AND PELVIS W/0 CONTRAS [CT] Stat Exams 05/06/18 21:34 Completed Assessment/Plan (1) Colitis Current Visit: Yes Status: Acute Assessment & Plan: Could just be related to the constipation, but she is on levaquin 750mg IV daily and flagyl 500mg IV q6h. There is bowel wall thickening and it's unclear if it's related to inflammation , underdistension, or mass. This will need followed up on. I did not discuss this with the family today. Code(s): K52.9 - NONINFECTIVE GASTROENTERITIS AND COLITIS, UNSPECIFIED (2) UTI (urinary tract infection) Current Visit: Yes Status: Acute Qualifiers: Urinary tract infection type: acute cystitis Hematuria presence: without hematuria Qualified Code(s): N30.00 - Acute cystitis without hematuria Assessment & Plan: Urine culture is pending. Code(s): N39.0 - URINARY TRACT INFECTION, SITE NOT SPECIFIED (3) Renal mass Current Visit: Yes Status: Acute Assessment & Plan: Could very well be related to her recent renal biopsy. Seeing Dr. Matamoros on . Code(s): N28.89 - OTHER SPECIFIED DISORDERS OF KIDNEY AND URETER (4) Dementia Current Visit: Yes Status: Chronic Qualifiers: Dementia type: unspecified type Dementia behavioral disturbance: without behavioral disturbance Qualified Code(s): F03.90 - Unspecified dementia without behavioral disturbance Code(s): F03.90 - UNSPECIFIED DEMENTIA WITHOUT BEHAVIORAL DISTURBANCE (5) Type 2 diabetes mellitus Current Visit: Yes Status: Chronic Qualifiers: Diabetes mellitus buttermaker continuous churn insulin use: without buttermaker continuous churn use Diabetes mellitus complication status: without complication Qualified Code(s): E11.9 - Type 2 diabetes mellitus without complications Assessment & Plan: sees Dr. Mcgraw.
[2018-05-07] MEDS ORDERED: CITROMA 296 ML PO ONE (11:51)
[2018-05-07] MEDS: NovoLIN R SQ PRN (12:10)
[2018-05-07] MEDS: Namenda 5 MG PO SCH ×2 (13:52→22:19)
[2018-05-07] MEDS: SYNTHROID 25 MCG PO SCH (13:52)
[2018-05-07] MEDS: NORVASC 5 MG PO SCH (13:52)
[2018-05-07] MEDS: MAG-OX 400 PO SCH (13:52)
[2018-05-07] MEDS: ENOXAPARIN SODIUM SQ SCH (13:54)
[2018-05-07] MEDS ORDERED: Glucophage 500 MG PO SCH (17:00)
[2018-05-07] MEDS ORDERED: NON-FORMULARY ITEM (Lovastatin [Lovastatin] 20 MG) PO SCH (22:00)
[2018-05-07] MEDS ORDERED: MILK OF MAGNESIA 30 ML PO SCH (22:00)
[2018-05-07] MEDS ORDERED: Zocor 10MG PO SCH (22:00)
[2018-05-08] MEDS: FLAGYL 500 MG IVPB 500 MG/100 ML BAG IV SCH ×3 (05:37→17:42)
[2018-05-08] MEDS ORDERED: LACTULOSE 20 GM/30ML UD CUP PO ONE (08:43)
--- NOTE | 2018-05-08 08:49 | PCM.DS ---
Discharge Summary Date of Admission: 05/07/18 02:25 Admitting Physician: SUMIT ANTONY Primary Care Provider: SUMIT ANTONY Allergies Allergies albuterol Allergy (Intermediate, Verified 05/07/18 03:10) Shortness of Breath Sulfa (Sulfonamide Antibiotics) Allergy (Intermediate, Verified 05/07/18 03:10) Hospital Summary - Hospital Course Hospital Course: patient was admitted with constipation, recently had renal biopsy for nephrotic syndrome, following with Dr Matamoros - Vitals & Intake/Output Vital Signs: Vital Signs Temperature 98.6 F 05/08/18 07:52 Pulse Rate 71 05/08/18 07:52 Respiratory Rate 18 05/08/18 07:52 Blood Pressure 156/68 05/08/18 07:52 O2 Sat by Pulse Oximetry 97 05/08/18 07:52 Intake & Output: Intake & Output 05/05/18 05/06/18 05/07/18 05/08/18 11:59 11:59 11:59 11:59 Intake Total 120 4349 Balance 120 4349 Weight 50.3 kg 50.5 kg - Lab Result Diagrams: 05/07/18 06:20 05/07/18 06:20 Lab Results-Last 24 Hrs: Accuchecks Date 05/07/18 Date 05/07/18 Date 05/07/18 Time 20:49 Time 16:30 Time 11:30 Accucheck Value: 125 Accucheck Value: 82 Accucheck Value: 153 Lab Results-Last 24 Hours 05/07/18 05/07/18 Range/Units 06:20 08:45 Hemoglobin A1c 5.93 (4.5-6.0) % Troponin I < 0.012 (0.000-0.034) ng/mL Micro Results-Entire Visit: Accuchecks Date 05/07/18 Date 05/07/18 Date 05/07/18 Time 20:49 Time 16:30 Time 11:30 Accucheck Value: 125 Accucheck Value: 82 Accucheck Value: 153 - Radiology Exams Ordered Rad Exams-Entire Visit: Radiology Procedures Category Date Time Status ABDOMEN AND PELVIS W/0 CONTRAS [CT] Stat Exams 05/06/18 21:34 Completed Discharge Exam General Appearance: no apparent distress, alert Skin Exam: normal color, warm, dry Respiratory Exam: normal breath sounds, lungs clear, No respiratory distress Cardiovascular Exam: regular rate/rhythm, normal heart sounds Gastrointestinal/Abdomen Exam: soft, No tenderness, No mass Extremity Exam: normal inspection, normal range of motion Final Diagnosis/Problem List - Final Discharge Diagnosis/Problem (1) Constipation Current Visit: Yes Status: Acute Assessment & Plan: will give lactulose, exam benign. likely home later today (2) Colitis Current Visit: Yes Status: Acute Assessment & Plan: no pain, no diarrhea, likely related to obstipation/distension of colon on review of CT. no further tx required (3) Renal mass Current Visit: Yes Status: Acute Assessment & Plan: related to recent biopsy, followed by Dr Matamoros - Discharge Disposition: Home, Self-Care Condition: Good Prescriptions: New Docusate Sodium [Doc-Q-Lace] 100 mg PO BID #60 capsule Continue Lovastatin 20 mg PO HS Metformin HCl 500 mg [Glucophage 500 MG] 500 mg PO BID Glimepiride 0.5 mg PO DAILY Levothyroxine Sodium 25 Mcg [Synthroid 25 Mcg] 25 mcg PO DAILY Magnesium Oxide 400 mg [Mag-Ox 400] 400 mg PO DAILY #30 tablet Amlodipine Besylate 5 mg PO DAILY Memantine HCl 10 mg PO BID Follow up with: SUMIT ANTONY MD [Primary Care Provider] - 1 Week
[2018-05-08] MEDS: Sodium Chloride 0.9% 1000 ML 1,000 ML IV SCH (10:33)
[2018-05-08] MEDS: LEVOFLOXACIN 750MG/150ML D5W 750 MG/150 ML BAG IV SCH (10:34)
[2018-05-08] MEDS: Namenda 5 MG PO SCH (10:35)
[2018-05-08] MEDS: SYNTHROID 25 MCG PO SCH (10:36)
[2018-05-08] MEDS: MAG-OX 400 PO SCH (10:36)
[2018-05-08] MEDS: ENOXAPARIN SODIUM SQ SCH (10:37)
[2018-05-08] MEDS: NORVASC 5 MG PO SCH (10:38)
[2018-05-08] MEDS: Pepcid 20 MG VIAL IV SCH (10:38)
[2018-05-08 11:51] VITALS: O2SAT 99
[2018-05-08] MEDS: NovoLIN R SQ PRN (11:52)
[2018-05-08 19:10] VITALS: BP 133/68; PULSE 66
== END 2018-05-08 19:55 | disposition home or self-care (01) ==
LOC: ED 20:34 → MED SURG 05-07 02:25
PROVIDERS: ADMIT Family Medicine; ATTEND Family Medicine
DX: K59.00 Constipation, unspecified (principal); K52.9 Noninfective gastroenteritis and colitis, unspecified; N28.89 Other specified disorders of kidney and ureter; E11.9 Type 2 diabetes mellitus without complications; Z79.4 Long term (current) use of insulin; I10 Essential (primary) hypertension; E03.9 Hypothyroidism, unspecified; N39.0 Urinary tract infection, site not specified; F03.90 Unspecified dementia, unspecified severity, without behavioral disturbance, psychotic disturbance, mood disturbance, and anxiety; Z79.899 Other long term (current) drug therapy
CPT/HCPCS: 36000; 36415; 74176; 80053; 81001; 82150; 82962; 83036; 83605; 83690; 84484; 85025; 87077; 87086; 87186; 93005; 93268; 96360; 96361; 96365; 99285; G0378; J0696; J1650; J1956; A9270-GY

== ENCOUNTER 2022-03-20 09:16 | Emergency (ER) | payer MEDICARE, OTHER ==
[2022-03-20] MEDS ORDERED: ZOFRAN ODT 4 MG ONE (09:25)
[2022-03-20 09:34] VITALS: BP 133/76
[2022-03-20] MEDS ORDERED: Sodium Chloride 0.9% 500 ML 500 ML IV ONE ×2 (09:45→10:05)
[2022-03-20] MEDS ORDERED: DEXTROSE 10% 250 ML 250 ML IV SCH (10:00)
[2022-03-20] MEDS ORDERED: DEXTROSE 10% IV ONE (10:05)
[2022-03-20 10:08] LABS: ALBUMIN 4.3 g/dL (3.5-5.0); ALKALINE PHOSPHATASE 60 U/L (38-126); ANION GAP 12.3 MEQ/L (5-15); BLOOD UREA NITROGEN 22 mg/dL (7-17); CHLORIDE 107 mmol/L (98-107); Calcium 8.9 mg/dL (8.4-10.2); Carbon Dioxide 24 mmol/L (22-30); Creatinine 1 0.93 mg/dL (0.52-1.04); EST GLOMERULAR FILTRATION RATE > 60.0 ML/MIN; Glucose 104 mg/dL (74-106); LIPASE 294 U/L (23-300); Potassium 4.2 mmol/L (3.5-5.1); SGOT/AST 40 U/L (14-36); SGPT/ALT 25 U/L (0-35); SODIUM 139 mmol/L (137-145); Total Protein 7.5 g/dL (6.3-8.2)
[2022-03-20 10:09] LABS: Absolute Neutrophil Ct (ANC) 3.67 x10^3/uL (1.4-6.9); Basophil (Absolute #) 0.02 x10^3/uL (0-0.4); Eosinophil % 5.4 % (0.00-5.0); Eosinophil (Absolute #) 0.31 x10^3/uL (0-0.5); Hematocrit 38.1 % (35-47); Hemoglobin 12.2 g/dL (12.0-16.0); Lymphocyte (Absolute #) 1.05 x10^3/uL (1.0-4.6); Lymphocytes % 18.4 % (24.0-44.0); Mean Cell Volume 101.3 fL (78-100); Mean Corpuscular Hemoglobin 32.4 pg (26-32); Monocyte (Absolute #) 0.65 x10^3/uL (0.0-1.3); Monocytes % 11.4 % (0.0-12.0); Neutrophil % 64.2 % (36.0-66.0); Platelet Count 161 x10^3/uL (150-450); Red Blood Count 3.76 x10^6/uL (4.1-5.4); Red Cell Distribution Width 12.6 % (11.5-14.0); White Blood Count 5.7 x10^3/uL (4.0-10.5)
[2022-03-20 10:40] LABS: Bacteria FEW /HPF (NEGATIVE); Epithelial Cells RARE /HPF (FEW); Mucus SLIGHT /HPF (NEGATIVE); WBC >100 /HPF (0-5)
[2022-03-20 10:48] LABS: Appearance CLOUDY (CLEAR); Bilirubin NEGATIVE (NEGATIVE); Glucose NEGATIVE (NEGATIVE)
[2022-03-20 10:49] LABS: Dipstick done @ ? MAIN LAB; Ketones TRACE (NEGATIVE); Nitrite POSITIVE (NEGATIVE); Protein,Urine Dip 100 (Negative); RBC TRACE-INTACT Ery/ul (0-5); Urine Cultured Indicated? YES; Urobilinogen 0.2 mg/dL (0-1)
[2022-03-20] MEDS ORDERED: ROCEPHIN 2 Gm-D5w 50ML BAG** 2 G/50 ML IVPB IV STA (11:03)
[2022-03-20] MEDS ORDERED: ROCEPHIN 2 Gm-D5w 50ML BAG** 2 G/50 ML IVPB IV ONE (11:17)
[2022-03-20 12:22] VITALS: PULSE 64; O2SAT 96
--- NOTE | 2022-03-20 12:30 | ERPHSYRPT ---
- History of Present Illness Time Seen by Provider: 03/20/22 09:40 Source: patient, family Exam Limitations: clinical condition Patient Subjective Stated Complaint: pt here for low blood sugar at home today it was 38 and pt was given glucagon and oral glucose, pt fell yesterday but does not feel she was hurt. she is normaly confused Triage Nursing Assessment: pt alert confused, arrived per ambulance, able to drink orange juice, skin w/d/p. has occ cough, no edema needed Physician History: 72 years old female with history of dementia, hypertension, hyperlipidemia, diabetes mellitus is brought in the ER with chief complaint of hypoglycemia with blood sugar of 38. EMS gave glucagon and currently in 100s. Patient is drinking orally. Does not report any chest pain or difficulty breathing. No vomiting or diarrhea reported. Patient is a poor historian secondary to her dementia and has baseline confusion, history is obtained mostly from and is limited. Timing/Duration: today Severity: moderate Allergies/Adverse Reactions: albuterol Allergy (Intermediate, Verified 03/20/22 09:29) Shortness of Breath Sulfa (Sulfonamide Antibiotics) Allergy (Intermediate, Verified 03/20/22 09:29) Home Medications: Glimepiride 0.5 mg PO DAILY 09/03/15 [History] Levothyroxine Sodium 25 Mcg [Synthroid 25 Mcg] 25 mcg PO DAILY 09/03/15 [History] Lovastatin 20 mg PO HS 09/03/15 [History] Metformin HCl 500 mg [Glucophage 500 MG] 500 mg PO BID 09/03/15 [History] Amlodipine Besylate 5 mg PO DAILY 05/07/18 [History] Memantine HCl 10 mg PO BID 05/07/18 [History] Hx Tetanus, Diphtheria Vaccination/Date Given: Yes Hx Influenza Vaccination/Date Given: No Hx Pneumococcal Vaccination/Date Given: Yes Immunizations Up to Date: Yes Travel Risk - International Travel Have you traveled outside of the country in past 3 weeks: No - Coronavirus Screening Are you exhibiting any of the following symptoms?: No Close contact with a COVID-19 positive Pt in past 14-21 Days: No - Vaccine Status Have you recieved a Covid-19 vaccination: Yes Pharmacist In Charge: Unknown - Vaccination Dates Date of 2cond Vaccination (if applicable): 2020 Dates if Unknown: ? - Review of Systems All Other Systems: Unable due to dementia - Past Medical History Pertinent Past Medical History: Yes Neurological History: Alzheimer's Disease ENT History: No Pertinent History Cardiac History: High Cholesterol, Hypertension Respiratory History: No Pertinent History Endocrine Medical History: Diabetes Type II, Hypothyroidism Musculoskeletal History: No Pertinent History GI Medical History: No Pertinent History History: Other Psycho-Social History: No Pertinent History Female Reproductive Disorders: No Pertinent History Other Medical History: recent memory issues; recent admission to [facility] for renal failure - Past Surgical History Past Surgical History: Yes Neuro Surgical History: No Pertinent History Cardiac: No Pertinent History Respiratory: No Pertinent History Gastrointestinal: Cholecystectomy Genitourinary: No Pertinent History Musculoskeletal: No Pertinent History Female Surgical History: Hysterectomy - Social History Smoking Status: Never smoker Exposure to second hand smoke: No Drug Use: none Patient Lives Alone: No - Nursing Vital Signs Nursing Vital Signs: Initial Vital Signs Temperature 97.5 F 03/20/22 09:30 Pulse Rate 58 L 03/20/22 09:30 Respiratory Rate 18 03/20/22 09:30 Blood Pressure 133/76 03/20/22 09:30 O2 Sat by Pulse Oximetry 94 L 03/20/22 09:30 Pain Scale Pain Intensity 0 - Physical Exam General Appearance: no apparent distress, alert Eye Exam: PERRL/EOMI Ears, Nose, Throat Exam: normal ENT inspection Neck Exam: normal inspection, supple, full range of motion Respiratory Exam: normal breath sounds, lungs clear Cardiovascular Exam: regular rate/rhythm, normal heart sounds Gastrointestinal/Abdomen Exam: soft, normal bowel sounds, No tenderness Extremity Exam: normal inspection, normal range of motion Neurologic Exam: alert, cooperative, 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 nml as tested Skin Exam: normal color SpO2 Interpretation: normal SpO2: 96 O2 Delivery: Room Air Ordered Tests: Active Orders 24 hr Category Date Time Status IV Insertion STAT Care 03/20/22 09:43 Completed CHEST 1 VIEW (PORTABLE) Stat Exams 03/20/22 11:04 Completed BLOOD CULTURE Stat Lab 03/20/22 09:43 Received CBC W DIFF Stat Lab 03/20/22 09:20 Completed CMP Stat Lab 03/20/22 09:20 Completed CULTURE,URINE Stat Lab 03/20/22 10:04 Received LIPASE Stat Lab 03/20/22 09:20 Completed Lactic Acid Stat Lab 03/20/22 09:43 Completed POCT GLUCOSE Stat Lab 03/20/22 10:09 Completed POCT GLUCOSE Stat Lab 03/20/22 11:29 Completed POCT GLUCOSE Stat Lab 03/20/22 12:20 Completed PROCALCITONIN Stat Lab 03/20/22 09:20 Completed TROPONIN Q4H Lab 03/20/22 09:20 Completed UA W/RFX CULTURE Stat Lab 03/20/22 10:04 Completed Medication Summary Discontinued Medications Generic Name Dose Route Start Last Admin Trade Name Freraúl PRN Reason Stop Dose Admin Dextrose 250 mls @ 50 mls/hr 03/20/22 10:00 03/20/22 10:11 Dextrose 10% 250 Ml IV 04/19/22 09:59 Not Given .Q5H CONCETTA Sodium Chloride 500 mls @ 500 mls/hr 03/20/22 09:45 03/20/22 11:07 Sodium Chloride 0.9% 500 Ml IV 03/20/22 10:44 Infused .Q1H ONE Infusion Sodium Chloride Confirm 03/20/22 10:05 Sodium Chloride 0.9% 500 Ml Administered 03/20/22 10:06 Dose 500 mls @ ud IV .STK-MED ONE Ceftriaxone Sodium/Dextrose 2 g in 50 mls @ 100 mls/hr 03/20/22 11:03 03/20/22 11:51 Rocephin 2 Gm-D5w 50ml Bag IV 03/20/22 11:32 Infused STAT STA Infusion Ceftriaxone Sodium/Dextrose Confirm 03/20/22 11:17 Rocephin 2 Gm-D5w 50ml Bag Administered 03/20/22 11:18 Dose 2 g in 50 mls @ ud IV .STK-MED ONE Dextrose Confirm 03/20/22 10:05 Dextrose 10% 250 Ml Administered 03/20/22 10:06 Dose 250 mls @ ud IV .STK-MED ONE Ondansetron HCl Confirm 03/20/22 09:25 Zofran 4 Mg/Udtablet Orally Disintegrating Administered 03/20/22 09:26 Dose 4 mg .ROUTE .STK-MED ONE Lab/Rad Data: Laboratory Result Diagrams 03/20/22 09:20 03/20/22 09:20 Laboratory Results 03/20/22 03/20/22 03/20/22 Range/Units 12:20 11:29 10:09 WBC (4.0-10.5) x10^3/uL RBC (4.1-5.4) x10^6/uL Hgb (12.0-16.0) g/dL Hct (35-47) % MCV (78-100) fL MCH (26-32) pg MCHC (32-36) g/dL RDW (11.5-14.0) % Plt Count (150-450) x10^3/uL MPV (7.5-11.0) fL Gran % (36.0-66.0) % Immature Gran % (Auto) (0.00-0.4) % Nucleat RBC Rel Count (0.00-0.1) % Eos # (Auto) (0-0.5) x10^3/uL Immature Gran # (Auto) (0.00-0.03) x10^3u/L Absolute Lymphs (auto) (1.0-4.6) x10^3/uL Absolute Monos (auto) (0.0-1.3) x10^3/uL Absolute Nucleated RBC (0.00-0.01) x10^3u/L Lymphocytes % (24.0-44.0) % Monocytes % (0.0-12.0) % Eosinophils % (0.00-5.0) % Basophils % (0.0-0.4) % Absolute Granulocytes (1.4-6.9) x10^3/uL Basophils # (0-0.4) x10^3/uL Sodium (137-145) mmol/L Potassium (3.5-5.1) mmol/L Chloride (98-107) mmol/L Carbon Dioxide (22-30) mmol/L Anion Gap (5-15) MEQ/L BUN (7-17) mg/dL Creatinine (0.52-1.04) mg/dL Estimated GFR ML/MIN Glucose (74-106) mg/dL POC Glucometer 303 H 220 H 173 H (74 to 106) mg/dL Lactic Acid (0.4-2.0) Calcium (8.4-10.2) mg/dL Total Bilirubin (0.2-1.3) mg/dL AST (14-36) U/L ALT (0-35) U/L Alkaline Phosphatase (38-126) U/L Troponin I (0.000-0.034) ng/mL Serum Total Protein (6.3-8.2) g/dL Albumin (3.5-5.0) g/dL Lipase (23-300) U/L Procalcitonin (0.030-0.080) ng/mL Urinalys Dipstick Clnc Urine Color (YELLOW) Urine Appearance (CLEAR) Urine pH (5-6) Ur Specific [place] (1.005-1.025) POC Urine Protein Conf (Negative) Urine Ketones (NEGATIVE) Urine Nitrite (NEGATIVE) Urine Bilirubin (NEGATIVE) Urine Urobilinogen (0-1) mg/dL Urine Leukocytes (NEGATIVE) Urine WBC (Auto) (0-5) /HPF Urine RBC (Auto) (0-2) /HPF U Epithel Cells (Auto) (FEW) /HPF Urine Bacteria (Auto) (NEGATIVE) /HPF Urine RBC (0-5) Vincenzo/ul Urine Mucus (Auto) (NEGATIVE) /HPF Ur Culture Indicated? Urine Glucose (NEGATIVE) mg/dL 03/20/22 03/20/22 03/20/22 Range/Units 10:04 09:43 09:20 WBC (4.0-10.5) x10^3/uL RBC (4.1-5.4) x10^6/uL Hgb (12.0-16.0) g/dL Hct (35-47) % MCV (78-100) fL MCH (26-32) pg MCHC (32-36) g/dL RDW (11.5-14.0) % Plt Count (150-450) x10^3/uL MPV (7.5-11.0) fL Gran % (36.0-66.0) % Immature Gran % (Auto) (0.00-0.4) % Nucleat RBC Rel Count (0.00-0.1) % Eos # (Auto) (0-0.5) x10^3/uL Immature Gran # (Auto) (0.00-0.03) x10^3u/L Absolute Lymphs (auto) (1.0-4.6) x10^3/uL Absolute Monos (auto) (0.0-1.3) x10^3/uL Absolute Nucleated RBC (0.00-0.01) x10^3u/L Lymphocytes % (24.0-44.0) % Monocytes % (0.0-12.0) % Eosinophils % (0.00-5.0) % Basophils % (0.0-0.4) % Absolute Granulocytes (1.4-6.9) x10^3/uL Basophils # (0-0.4) x10^3/uL Sodium (137-145) mmol/L Potassium (3.5-5.1) mmol/L Chloride (98-107) mmol/L Carbon Dioxide (22-30) mmol/L Anion Gap (5-15) MEQ/L BUN (7-17) mg/dL Creatinine (0.52-1.04) mg/dL Estimated GFR ML/MIN Glucose (74-106) mg/dL POC Glucometer (74 to 106) mg/dL Lactic Acid 1.4 (0.4-2.0) Calcium (8.4-10.2) mg/dL Total Bilirubin (0.2-1.3) mg/dL AST (14-36) U/L ALT (0-35) U/L Alkaline Phosphatase (38-126) U/L Troponin I (0.000-0.034) ng/mL Serum Total Protein (6.3-8.2) g/dL Albumin (3.5-5.0) g/dL Lipase (23-300) U/L Procalcitonin 0.098 H (0.030-0.080) ng/mL Urinalys Dipstick Clnc MAIN LAB Urine Color YELLOW (YELLOW) Urine Appearance CLOUDY A (CLEAR) Urine pH 7.0 (5-6) Ur Specific [place] 1.020 (1.005-1.025) POC Urine Protein Conf 100 A (Negative) Urine Ketones TRACE A (NEGATIVE) Urine Nitrite POSITIVE A (NEGATIVE) Urine Bilirubin NEGATIVE (NEGATIVE) Urine Urobilinogen 0.2 (0-1) mg/dL Urine Leukocytes SMALL A (NEGATIVE) Urine WBC (Auto) >100 A (0-5) /HPF Urine RBC (Auto) 3-5 A (0-2) /HPF U Epithel Cells (Auto) RARE (FEW) /HPF Urine Bacteria (Auto) FEW A (NEGATIVE) /HPF Urine RBC TRACE-INTACT A (0-5) Vincenzo/ul Urine Mucus (Auto) SLIGHT A (NEGATIVE) /HPF Ur Culture Indicated? YES Urine Glucose NEGATIVE (NEGATIVE) mg/dL 03/20/22 03/20/22 03/20/22 Range/Units 09:20 09:20 09:20 WBC 5.7 (4.0-10.5) x10^3/uL RBC 3.76 L (4.1-5.4) x10^6/uL Hgb 12.2 (12.0-16.0) g/dL Hct 38.1 (35-47) % MCV 101.3 H (78-100) fL MCH 32.4 H (26-32) pg MCHC 32.0 (32-36) g/dL RDW 12.6 (11.5-14.0) % Plt Count 161 (150-450) x10^3/uL MPV 10.0 (7.5-11.0) fL Gran % 64.2 (36.0-66.0) % Immature Gran % (Auto) 0.2 (0.00-0.4) % Nucleat RBC Rel Count 0.0 (0.00-0.1) % Eos # (Auto) 0.31 (0-0.5) x10^3/uL Immature Gran # (Auto) 0.01 (0.00-0.03) x10^3u/L Absolute Lymphs (auto) 1.05 (1.0-4.6) x10^3/uL Absolute Monos (auto) 0.65 (0.0-1.3) x10^3/uL Absolute Nucleated RBC 0.00 (0.00-0.01) x10^3u/L Lymphocytes % 18.4 L (24.0-44.0) % Monocytes % 11.4 (0.0-12.0) % Eosinophils % 5.4 H (0.00-5.0) % Basophils % 0.4 (0.0-0.4) % Absolute Granulocytes 3.67 (1.4-6.9) x10^3/uL Basophils # 0.02 (0-0.4) x10^3/uL Sodium 139 (137-145) mmol/L Potassium 4.2 (3.5-5.1) mmol/L Chloride 107 (98-107) mmol/L Carbon Dioxide 24 (22-30) mmol/L Anion Gap 12.3 (5-15) MEQ/L BUN 22 H (7-17) mg/dL Creatinine 0.93 (0.52-1.04) mg/dL Estimated GFR > 60.0 ML/MIN Glucose 104 (74-106) mg/dL POC Glucometer (74 to 106) mg/dL Lactic Acid (0.4-2.0) Calcium 8.9 (8.4-10.2) mg/dL Total Bilirubin 0.40 (0.2-1.3) mg/dL AST 40 H (14-36) U/L ALT 25 (0-35) U/L Alkaline Phosphatase 60 (38-126) U/L Troponin I < 0.012 (0.000-0.034) ng/mL Serum Total Protein 7.5 (6.3-8.2) g/dL Albumin 4.3 (3.5-5.0) g/dL Lipase 294 (23-300) U/L Procalcitonin (0.030-0.080) ng/mL Urinalys Dipstick Clnc Urine Color (YELLOW) Urine Appearance (CLEAR) Urine pH (5-6) Ur Specific [place] (1.005-1.025) POC Urine Protein Conf (Negative) Urine Ketones (NEGATIVE) Urine Nitrite (NEGATIVE) Urine Bilirubin (NEGATIVE) Urine Urobilinogen (0-1) mg/dL Urine Leukocytes (NEGATIVE) Urine WBC (Auto) (0-5) /HPF Urine RBC (Auto) (0-2) /HPF U Epithel Cells (Auto) (FEW) /HPF Urine Bacteria (Auto) (NEGATIVE) /HPF Urine RBC (0-5) Vincenzo/ul Urine Mucus (Auto) (NEGATIVE) /HPF Ur Culture Indicated? Urine Glucose (NEGATIVE) mg/dL - Progress Progress: improved Progress Note: 03/20/22 12:26 72-year-old is evaluated for hypoglycemia. Patient blood sugar started to improve on presentation operatives given glucagon shot. She is given oral stuff containing carbohydrates. There is no drop in blood sugar while in the ER. Work-up showed normal white count, stable renal function and does have UTI. It is of Rocephin in here. Has normal lactate, mildly elevated procalcitonin which I believe is secondary to UTI. We will continue with oral antibiotics. Patient does not want to stay in the hospital and is very anxious to leave. Counseled on monitoring of blood sugar, insulin use and outpatient follow-up. Discussed signs symptoms of worsening needing return to ER with /patient seem understanding Counseled pt/family regarding: lab results, diagnosis, need for follow-up - Departure Departure Disposition: Home Clinical Impression: UTI (urinary tract infection), Dementia, Hypoglycemia Condition: Stable Critical Care Time: No Referrals: SUMIT ANTONY MD [Primary Care Provider] - Follow up/PCP as directed (In 2 days for reevaluation) Instructions: Low Blood Sugar, Adult (DC) Additional Instructions: Monitor blood sugar regularly, keep a log and follow-up with primary care for reevaluation. Return to ER for any worsening. Prescriptions: Cephalexin Mh 500 mg [Keflex 500 mg] 500 mg PO TID #21 cap
--- NOTE | 2022-03-20 18:08 | XRAY ---
Indication: Hypoglycemia. Comparison: June 25, 2016 Portable chest is now clear. Heart not enlarged. Bony thorax intact again with osteopenia, degenerative changes, and dextroscoliosis. Impression: Nonacute chest with chronic bony findings.
== END 2022-03-20 12:39 | disposition home or self-care (01) ==
LOC: ED 09:16
DX: N39.0 Urinary tract infection, site not specified (principal); E11.649 Type 2 diabetes mellitus with hypoglycemia without coma; G30.9 Alzheimer's disease, unspecified; F02.80 Dementia in other diseases classified elsewhere, unspecified severity, without behavioral disturbance, psychotic disturbance, mood disturbance, and anxiety; I10 Essential (primary) hypertension; E78.5 Hyperlipidemia, unspecified; Z79.84 Long term (current) use of oral hypoglycemic drugs; Z79.899 Other long term (current) drug therapy
CPT/HCPCS: 36000; 36415; 71045; 80053; 81015; 82947; 83605; 83690; 84145; 84484; 85025; 87040; 87077; 87086; 87186; 96365; 99284; J0696; Q0162